=== PATIENT | female | born 1970 | race Caucasian/White ===

== ENCOUNTER → 2017-11-14 19:25 | Outpatient (CLI) | payer BC, SELFPAY ==
[2017-08-16 02:55] VITALS: BMI 30.7
[2017-08-16 14:50] VITALS: BP 110/64
[2017-11-18 17:08] LABS: HPV Reflexed? NOT INDICATED
== END ==
PROVIDERS: Family Provider Nurse Practitioner; PCP Nurse Practitioner; Visit Provider Obstetrics & Gynecology
DX: Z12.4 Encounter for screening for malignant neoplasm of cervix (principal)
CPT/HCPCS: 88175; G0145

== ENCOUNTER 2018-02-13 21:27 | Emergency (ER) | payer BC, SELFPAY ==
[2018-02-13 21:28] VITALS: BP 138/92; PULSE 84; RESP 15; TEMP 36.8; BMI 31.6
--- NOTE | 2018-02-13 22:19 | RAD_ITS ---
STUDY: X-RAY - LEFT FOOT CLINICAL: Female, 47 years old. Trauma TECHNIQUE: 3 view(s) of the foot. COMPARISON: None. FINDINGS: Normal talus,, and tarsal bones. Tiny calcaneal spur is noted Normal visualized subtalar, talonavicular, calcaneocuboid, tarsal and tarsometatarsal articulations. Normal metatarsi. Normal metatarsophalangeal joint of the great toe. Normal tibial and fibular sesamoid bones. Normal interphalangeal joint of the great toe. Normal phalanges of the great toe. Normal second through fifth metatarsophalangeal joints. Normal interphalangeal joints and phalanges of the lesser toes. The soft tissue structures are unremarkable. RAD/Foot min 3 Views IMPRESSION: No evidence for acute fracture or dislocation Electronically Signed: Taqueria Paul MD at 22:54 EDT , Service support ,
--- NOTE | 2018-02-13 22:19 | RAD_ITS ---
STUDY: X-RAY - LEFT ANKLE REASON FOR EXAM: Female, 47 years old. Swelling TECHNIQUE: 3 view(s) of the ankle. COMPARISON: None. FINDINGS: Normal visualized distal tibia and fibula. Normal medial and lateral malleoli. Normal tibiotalar articulation and ankle mortise. Normal visualized talus and calcaneus. The visualized subtalar, talonavicular, calcaneocuboid and tarsal articulations are normal. Bimalleolar soft tissue swelling is seen RAD/Ankle min 3 Views IMPRESSION: Bimalleolar sprain. No evidence for acute fracture. Electronically Signed: Taqueria Paul MD at 22:53 EDT , Service support ,
[2018-02-13] MEDS: HYDROcodone Bitartrate/Apap 5/325 Tablet PO (23:03)
--- NOTE | 2018-02-13 23:36 | ED.DCSUM_ITS ---
- ER Visit Summary Date of Service: 02/13/18 Chief Complaint: [Injury to left foot and ankle] History of Present Illness: The patient is a 47 F [presents to the emergency department after sustaining an injury 2 days ago. Patient states that she missed a step and fell twisting her foot and ankle. Patient has not been able to bear much weight. Patient denies any other injuries.] Physical Examination: [HEENT-PERRLA, EOMI. Cranial nerves II through XII grossly intact. TMs clear. Mucous membranes moist. No adenopathy. Cardiovascular-regular rate and rhythm without murmur or ectopy Lungs-clear to auscultation, chest wall stable without crepitus or subcu emphysema Abdomen-normoactive bowel sounds, soft, nontender, no rebound or rigidity, no peritoneal signs. Extremities-intact ?4, normal range of motion, normal pulses, atraumatic]. Left lower extremity-patient has diffuse soft tissue swelling about the left ankle and foot. There is diffuse ecchymosis and bruising medial and lateral ankle and foot. No pain at the proximal fibular head. Neurovascular intact distally. Test Results: [X-rays of the left foot and ankle obtained showed no fractures only soft tissue swelling.] Emergency Department Course and Treatment: [Patient given an air splint and crutches] Treatment Plan: [Patient advised to ice and elevate extremity. Patient will be given a prescription for Tolar for pain] Disposition: [Discharged to home in stable condition]. Patient advised to follow-up with her primary care physician within next 5-7 days. Impression: [Left foot and ankle sprain] This note was generated with [employer] dictation software. It may contain incorrect words, spelling, and punctuation that were not noted in review of the chart prior to signing ED Disposition - Plan for ED Patient: Chief Complaint: Lower Extremity Injury Referrals: Nuris Fowler [Primary Care Provider] -
--- NOTE | 2018-02-13 23:36 | ED.DEP ---
ED Disposition - Plan for ED Patient: Chief Complaint: Lower Extremity Injury Instructions: ED Sprain Foot, ED Sprain Ankle W X Ray Prescriptions: Hydrocodone/Acetaminophen [[place] 5-325 Tablet] 1 - 2 ea PO 4X/DAY PRN PRN 5 Days #20 tab PRN Reason: Pain Referrals: Nuris Fowler [Primary Care Provider] - 5-7 Days
[2018-02-13 23:46] VITALS: BP 129/79; PULSE 85; RESP 17; O2SAT 95
--- NOTE | 2018-02-13 23:47 | ED.RN ---
DISCHARGE INSTRUCTIONS GIVEN TO AND REVIEWED WITH PATIENT, PATIENT DENIES QUESTIONS OR CONCERNS AND VOICES UNDERSTANDING OF DISCHARGE INSTRUCTIONS. PT AMBULATE OUT OF ROOM WITHOUT DIFFICULTY.
== END 2018-02-13 23:48 | disposition home or self-care (01) ==
PROVIDERS: Emergency Provider Emergency Medicine; Family Provider Nurse Practitioner; PCP Nurse Practitioner
DX: S93.602A Unspecified sprain of left foot, initial encounter (principal); S93.402A Sprain of unspecified ligament of left ankle, initial encounter; W10.9XXA Fall (on) (from) unspecified stairs and steps, initial encounter; Y93.9 Activity, unspecified; Y92.9 Unspecified place or not applicable; Z90.89 Acquired absence of other organs
CPT/HCPCS: 73610; 73630; 99284

== ENCOUNTER 2018-03-13 15:30 | Outpatient (RCR) | payer BC, SELFPAY ==
--- NOTE | 2018-03-04 18:58 | HP.PTEVAL_ITS ---
Patient's Visit Information ALFONSO FISH is a 47 year old F referred to Physical Therapy by Anjelica Mahoney with a diagnosis of L inversion ankle sprain. Date of Evaluation: 02/25/18 Physical Therapist: Eran Esquivel - Visit Plan Frequency: 2x /Week Duration: 4 Weeks Plan: 4way ankle w/tband in PT and for HEP, add WB ex's as pt tolerates - Subjective Subjective: Pt. is here today for her initial evaluation with diagnosis of L inversion ankle sprain. Pt. reports ~2 weeks ago she was walking up her stairs and went to turn around to go back down and missed the last 3 steps, landing with her ankle turned in spraining it. She arrives today in a walking soft air cast. She reports initial edema with initial lmited ability to bear wt. Pt. has improved, but continues to use crutches for mobility. She reports increased lateral ankle pain with all WBing, and with having ankle in a dependent position. She has been icing and using compression to reduce symptoms. 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 Pt. had an xray not showing any acute fractures. Pt. is hopeful to reduce symptoms in order to get back to all work and recreational activities without limitations. - Pain left ankle Pain Intensity (Out of 10): 2 Pain Intensity Range: 2, 6 - Objective POSTURE: Pt. is able to stand, but has slight increased wt. shift to R side in stance. Pt. is able to stand without cructches, but walking has increased antalgic pattern, but is able to bear wt. PALPATION: Pt. has marked non pitting edema throughout L ankle/foot. Pt. has some lateral and posterior discoloration as well. Pt. has edema throughout lateral aspect of ankle/foot. Pt. has increased pain at ATFL and CFL regions at lateral malleolus. She also has pain along distal end of fibula. Increased pain to tapping of distal end of fibula. NEUROLOGICAL: Pt. has normal sensation to light and sharp touch of bilateral LEs. Pt. has 2+ patellar and achilles DTR bilateral, normal pedial pulses. ROM: R ankle- DF 18deg, PF 49deg, INV 18deg, EVR 20deg. L ankle- DF 8deg, PF 33deg, INV 7deg, EVR 8deg. Pt. had increased pain with end range of over pressures, empty end feel secondary to pain. MMT: R ankle 5/5 throughout. L ankle- DF 4/5 NW, PF 4/5 increase NW, INV 4/5 increase NW, EVR 4-/5 increase NW. Pt. has 5/5 bilateral quad/HS strength. GAIT: Pt. uses crutches and walking air cast. Pt. is able to bear wt. throughout L LE, but reports increased pain with doing so. Pt. has antalgic pattern with reduced use of crutches. Decreased step length noted, minimal heel off with RLE and limited push off. SPECIAL TESTING: - anterior tilt, - anterior drawer, - calcaneal tilt. Pt. had mild pain with all of the above, but no laxity noted. Pt. had negative kevin's sign. Pt. did have pain with tapping to distal fibural head. - Goals Goal 1:: Pt. to be I with HEP. Goal Time Frame: 4-6 Weeks Goal 2:: Pt. to have full L ankle ROM without increase in symptoms. Goal Time Frame: 4-6 Weeks Goal 3:: Pt. to have increased L ankle, foot strength by 1/2 grade of all effected musculature. Goal Time Frame: 4-6 Weeks Goal 4:: Pt. to ambulate without AD without increase in symptoms allowing for increased tolerance to all work related activities. Goal Time Frame: 4-6 Weeks Goal 5:: Pt. to tolerate SLS on LLE for 30sec without increase in symptoms and improved stability. Goal Time Frame: 4-6 Weeks - Rehabilitation Potential Physical Therapy Diagnosis: Pt. has signs and symptoms consistent with L inversion ankle sprain. Pt. has continued edema and decreased tolerance to wt. bearing on LLE. She continues to use crutches to assist with off loading. She did have signs of distal fibular involvement, if she does not progress with wt. bearing I might suggest a repeat xray as edema reduces to rule out missed fx. Pt. has no signs of ligament damage at this point, but difficult to be sure do to edema. Rehabilitation Potential: Good - Anticipated Interventions Patient/Client Instruction: Educate patient on: Condition, Plan of Care, Risk Factors, Benefits of Fitness Program For the Purpose of:: To foster healthy habits, To improve decision making, To facilitate caregiver knowledge, To improve self management, To prevent re-injury , To improve ability to perform tasks related to life management, To improve tolerance to ADL's Therapeutic Exercise to Include: Strength training, Power training, Body mechanics, Postural training, Flexibilty training, Gait and locomotor training, Passive ROM, Active ROM For the Purpose of:: To decrease pain, To decrease swelling/inflammation, To increase ROM, To improve nutrient delivery to tissue, To increase oxygenation perfusion, To improve muscle performance and motor function, To improve ability to perform ADL's, To improve gait and locomotor functions, To improve health of tissue, To decrease soft tissue restriction, To increase flexibility/ROM, To improve endurance, To improve balance Manual Therapy Techniques to Include: Mobilization, Passive ROM, Soft tissue mobilization For the Purpose of:: To decrease pain, To decrease swelling/inflammation, To increase ROM, To improve nutrient delivery to tissue Other electric stimulation: Yes Cryotherapy (ice pack, ice massage): Yes Vasopneumatic device: Yes For the Purpose of:: To decrease pain, To decrease swelling/inflammation, To increase ROM Thank you for the opportunity to evaluate your patient. For Medicare and Medicare HMO plans, please review the plan of care and approve it. It will need to be FAXED BACK to us at [phone] for Medicare purposes. Please let me know if there are questions or concerns regarding this plan of care. Physician Signature: Date:
--- NOTE | 2018-08-06 13:50 | HP.PTDCNRP_ITS ---
HP - Discharge Summary (1) - Patient Information ALFONSO FISH was seen in my office for initial evaluation on 02/25/18. The following Plan of Care was established for this patient: Initial Frequency: 2x /Week Initial Duration: 4 Weeks - Anticipated Interventions Patient/Client Instruction: Educate patient on: Condition, Plan of Care, Risk Factors, Benefits of Fitness Program For the Purpose of:: To foster healthy habits, To improve decision making, To facilitate caregiver knowledge, To improve self management, To prevent re- injury, To improve ability to perform tasks related to life management, To improve tolerance to ADL's Therapeutic Exercise to Include: Strength training, Power training, Body mechanics, Postural training, Flexibilty training, Gait and locomotor training, Passive ROM, Active ROM For the Purpose of:: To decrease pain, To decrease swelling/inflammation, To increase ROM, To improve nutrient delivery to tissue, To increase oxygenation perfusion, To improve muscle performance and motor function, To improve ability to perform ADL's, To improve gait and locomotor functions, To improve health of tissue, To decrease soft tissue restriction, To increase flexibility/ROM, To improve endurance, To improve balance Manual Therapy Techniques to Include: Mobilization, Passive ROM, Soft tissue mobilization For the Purpose of:: To decrease pain, To decrease swelling/inflammation, To increase ROM, To improve nutrient delivery to tissue Other electric stimulation: Yes Cryotherapy (ice pack, ice massage): Yes Vasopneumatic device: Yes For the Purpose of:: To decrease pain, To decrease swelling/inflammation, To increase ROM This patient was last seen in our office 03/13/18. Pertinent comments regarding their Physical therapy will appear below: Pt. was seen for her R lateral ankle sprain. Pt. was treated with ROM, strengthening and modalities. Pt. was progressing as expected. Pt did not return to subsequent visits and has not been seen in ~4 months. She will be DC from PT at this point in time. At this point I will be discontinuing this patient from physical therapy. I would be happy to see this patient again in the future if found appropriate by t he physician. Thank you! Eran Esquivel
== END 2018-03-13 19:00 | disposition home or self-care (01) ==
LOC: PT 15:30
PROVIDERS: Family Provider Nurse Practitioner; PCP Nurse Practitioner; Visit Provider Internal Medicine
DX: S93.401D Sprain of unspecified ligament of right ankle, subsequent encounter (principal)
CPT/HCPCS: 97110; 97161

== ENCOUNTER → 2021-03-16 13:30 | Outpatient (CLI) | payer BC, SELFPAY ==
[2021-03-20 13:25] LABS: HPV APTIMA, High Risk Negative (Negative)
== END ==
PROVIDERS: PCP Nurse Practitioner; Visit Provider Student in an Organized Health Care Education/Training Program
DX: Z12.4 Encounter for screening for malignant neoplasm of cervix (principal)
CPT/HCPCS: 87624; 88175; G0145

== ENCOUNTER → 2021-06-27 07:41 | Outpatient (CLI) | payer BC, SELFPAY ==
--- NOTE | 2021-06-27 07:46 | BI_ITS ---
MAMMOGRAPHY - BILATERAL SCREENING REASON FOR EXAM: Female, 51 years old. Routine annual screening examination. PERTINENT HISTORY: Non-contributory. TECHNIQUE: Digital bilateral breast [place]o (3D mammographic acquisition) in the CC and MLO projections. 2-D mediolateral oblique (MLO) and craniocaudad (CC) views of both breasts were obtained. CAD: Full Field Digital Mammography with Computer Added Detection was performed. COMPARISON: Comparison is made with prior study dated 12/10/2016 and 06/14/2014. FINDINGS: Breast Composition: The breasts are heterogeneously dense, which may obscure small masses. There is a 1.9 cm x 1.2 cm well-defined nodule in the upper lateral aspect of the right breast. Correlation with ultrasound is recommended. Stable benign appearing bilateral axillary adenopathy. No other significant abnormalities are identified. BI/SCRN MAMM (CAD)W/MODESTO BILAT IMPRESSION: 1.9 cm x 1.2 cm well-defined nodule in the upper lateral aspect of the right breast. Correlation with ultrasound is recommended. ASSESSMENT CATEGORY: BIRADS Category 0: Incomplete. Need additional imaging evaluation. A letter regarding these results will be sent to the patient by the facility within 30 days. Approximately 10% of breast cancers are not detected by mammography. A normal mammogram should not delay biopsy of a clinically suspicious abnormality. [id number] Electronically Signed: Krzysztof Knapp MD at 8:55 EDT , Service support ,
== END ==
PROVIDERS: PCP Nurse Practitioner; Referring Provider Nurse Practitioner; Visit Provider Nurse Practitioner
DX: Z12.31 Encounter for screening mammogram for malignant neoplasm of breast (principal)
CPT/HCPCS: 77063; 77067

== ENCOUNTER → 2021-07-11 07:53 | Outpatient (CLI) | payer BC, SELFPAY ==
--- NOTE | 2021-07-11 07:58 | US_ITS ---
STUDY: ULTRASOUND BREAST - RIGHT REASON FOR EXAM: Female, 51 years old. Abnormal screening mammogram. TECHNIQUE: Axial and longitudinal images of the RIGHT breast were performed with a high resolution ultrasound transducer. # OF IMAGES: 12 COMPARISON: Comparison is made with prior study dated 06/27/2021. FINDINGS: RIGHT Breast: The mammographic abnormality corresponds to a 2 cm x 2.2 cm x 0.6 cm cyst at the 11 o''clock position of the breast at 4 cm from nipple. A tiny septation is seen within it. US/Breast Limited Unilateral IMPRESSION: The mammographic abnormality corresponds to a 2 cm x 2.2 cm x 0.6 cm cyst at the 11 o''clock position of the breast at 4 cm from the nipple. ASSESSMENT CATEGORY: BIRADS Category 2: Benign. A letter regarding these results will be sent to the patient by the facility within 30 days. Electronically Signed: Krzysztof Knapp MD at 8:48 EDT , Service support ,
== END ==
PROVIDERS: PCP Nurse Practitioner; Referring Provider Nurse Practitioner; Visit Provider Nurse Practitioner
DX: R92.8 Other abnormal and inconclusive findings on diagnostic imaging of breast (principal)
CPT/HCPCS: 76642

== ENCOUNTER 2021-10-25 15:55 | Outpatient (CLI) | payer BC, SELFPAY ==
[2021-10-25 16:49] LABS: Hemoglobin 12.1 g/dL (12.0-15.0); Mean Corp Hgb Conc 32.7 g/dL (32-36); Mean Corpuscular Hgb 30.1 pg (27.0-32.0); Mean Platelet Vol. 9.8 fl (6.2-12.0); Platelet Count 404 K/mm3 (150-450); RBC Distribution Width CV 11.9 % (11.6-14.6); RBC Distribution Width SD 40.6 fl (35.1-43.9); Red Blood Count 4.02 M/mm3 (4.2-5.4); White Blood Count 6.2 K/mm3 (4.4-11.0)
[2021-10-25 17:08] LABS: Hemoglobin A1c 4.7 % (3.8-5.6)
[2021-10-25 17:22] LABS: Follicle Stimulating Hormone 24.3 mIU/mL; Luteinizing Hormone 11.8 mIU/mL; Thyroid Stim Hormone (TSH) 1.18 uIU/mL (0.358-3.74)
== END 2021-10-25 23:59 | disposition short-term general hospital (02) ==
LOC: WOBLAB 15:56
PROVIDERS: PCP Nurse Practitioner; Visit Provider Student in an Organized Health Care Education/Training Program
DX: N93.9 Abnormal uterine and vaginal bleeding, unspecified (principal)
CPT/HCPCS: 36415; 83001; 83002; 83036; 84443; 85027

== ENCOUNTER → 2022-08-13 | Outpatient (CLI) | payer BC, SELFPAY ==
--- NOTE | 2022-08-13 16:03 | BI_ITS ---
MAMMOGRAPHY - BILATERAL SCREENING REASON FOR EXAM: Female, 52 years old. Routine annual screening examination. PERTINENT HISTORY: Non-contributory. TECHNIQUE: Digital bilateral breast [place] (3D mammographic acquisition) in the CC and MLO projections. 2-D mediolateral oblique (MLO) and craniocaudad (CC) views of both breasts were obtained. CAD: Full Field Digital Mammography with Computer Added Detection was performed. COMPARISON: Comparison is made with prior study dated 06/27/2021 and 12/10/2016. FINDINGS: Breast Composition: The breasts are heterogeneously dense, which may obscure small masses. There is a 2.8 cm x 1.7 cm well-defined nodular density in the upper lateral aspect of the right breast. This may represent either a septated cyst or 2 adjacent cysts. This has increased in size as compared to prior study. Correlation with ultrasound is recommended. No other significant abnormalities are identified. BI/SCRN MAMM (CAD)W/MODESTO BILAT IMPRESSION: There has been enlargement of the previously seen nodular density in the slightly upper lateral aspect of the right breast as described. Correlation with ultrasound is recommended. ASSESSMENT CATEGORY: BIRADS Category 0: Incomplete. Need additional imaging evaluation. A letter regarding these results will be sent to the patient by the facility within 30 days. Approximately 10% of breast cancers are not detected by mammography. A normal mammogram should not delay biopsy of a clinically suspicious abnormality. [id number] Electronically Signed: Krzysztof Knapp MD at 8:29 EDT ,
== END | disposition home or self-care (01) ==
LOC: OPBI 16:01
PROVIDERS: PCP Nurse Practitioner Family; Visit Provider Nurse Practitioner Family
DX: Z12.31 Encounter for screening mammogram for malignant neoplasm of breast (principal)
CPT/HCPCS: 77063; 77067

== ENCOUNTER → 2022-08-15 | Outpatient (CLI) | payer BC, SELFPAY ==
--- NOTE | 2022-08-15 10:27 | US_ITS ---
STUDY: ULTRASOUND BREAST - RIGHT REASON FOR EXAM: Female, 52 years old. Abnormal screening mammogram. TECHNIQUE: Axial and longitudinal images of the RIGHT breast were performed with a high resolution ultrasound transducer. # OF IMAGES: 6 COMPARISON: Comparison is made with prior mammogram dated 08/13/2022. FINDINGS: RIGHT Breast: The mammographic abnormality corresponds to a 2.6 cm x 3.4 cm x 1.1 cm cyst at the 11 o''clock position of the breast and 4 cm from the nipple. US/Breast Limited Unilateral IMPRESSION: The mammographic abnormality corresponds to a 2.6 cm x 3.4 cm x 1.1 cm cyst at the 11 o''clock position of the breast and for sinusitis of the nipple. ASSESSMENT CATEGORY: BIRADS Category 2: Benign. A letter regarding these results will be sent to the patient by the facility within 30 days. Electronically Signed: Krzysztof Knapp MD at 10:56 EDT ,
== END | disposition home or self-care (01) ==
LOC: OPUS 10:24
PROVIDERS: PCP Nurse Practitioner Family; Visit Provider Nurse Practitioner Family
DX: R92.2 Inconclusive mammogram (principal)
CPT/HCPCS: 76642

== ENCOUNTER → 2022-11-11 | Outpatient (CLI) | payer BC, SELFPAY ==
--- NOTE | 2022-11-11 15:05 | CT_ITS ---
STUDY: CT ABDOMEN AND PELVIS WITH CONTRAST REASON FOR EXAM: Female, 52 years old. ABD PAIN/ RECTAL BLEEDING/NAUSEA RADIATION DOSAGE (If Supplied By Facility): CTDIvol = ( 20.46 ) mGy, DLP = ( 1131.39 ) mGycm TECHNIQUE: Transaxial images were obtained from the dome of the diaphragm to the symphysis pubis without oral contrast. Oral and amp;amp; IV Gastrografin and amp;amp; 100mL Isovue-370 was administered. Sagittal and coronal images were reconstructed. Individualized dose optimization techniques were used for this CT. COMPARISON: August 15, 2017 FINDINGS: Minor atelectasis within the dependent portion of the lungs.. The visualized portions of the heart are within normal limits. Normal liver. Normal gallbladder and extrahepatic biliary system. Normal spleen. Normal pancreas. Normal bilateral adrenal glands. No evidence for renal obstruction. There is a very tiny cortical cyst in left kidney. Normal visualized stomach.. No evidence for small bowel obstruction. There are a couple small bowel loops in the right lower abdomen demonstrating thickening of the ramos possibly representing nonspecific enteritis Normal colon. . Appendix not visualized consistent with appendectomy. Normal abdominal aorta. Normal inferior vena cava. Normal retroperitoneum. Normal urinary bladder. Normal abdominal wall. Lumbar spine demonstrates mild degenerative change CT/Abdomen/Pelvis WITH Contrast IMPRESSION: No evidence for small bowel obstruction. Findings which may be consistent with mild nonspecific enteritis. Postop change status post appendectomy Electronically Signed: Taqueria Paul MD at 17:51 EST ,
[2022-11-11 16:17] LABS: Absolute Lymphocyte Count 1.51 X10^3/uL (0.83-4.51); Absolute Neutrophil Count 3.2 X10^3/uL (2.0-7.7); Basophil# 0.04 X10^3/uL; Basophil% 0.7 % (0-1); Eosinophil# 0.22 X10^3/uL; Eosinophils% 4.1 % (0-5); Hematocrit 42.8 % (37-47); Hemoglobin 14.5 g/dL (12.0-15.0); Lymphocyte # 1.51 X10^3/ul (0.83-4.51); Mean Corp Hgb Conc 33.9 g/dL (32-36); Mean Corpuscular Hgb 30.8 pg (27.0-32.0); Mean Corpuscular Volume 90.9 fL (81-99); Mean Platelet Vol. 11.3 fl (6.2-12.0); Monocyte# 0.43 X10^3/uL; NRBC Flagged by Analyzer 0 % (0-5); Neutrophil # 3.18 X10^3/uL (2.7-7.7); Neutrophil % 58.8 % (47-70); POSITIVE COUNT YES; Platelet Count 271 K/mm3 (150-450); RBC Distribution Width CV 12.5 % (11.6-14.6); RBC Distribution Width SD 41.1 fl (35.1-43.9); Red Blood Count 4.71 M/mm3 (4.2-5.4); White Blood Count 5.4 K/mm3 (4.4-11.0)
[2022-11-11 16:18] LABS: AST(SGOT) 26 U/L (15-37); Alanine Aminotransfer ALT/SGPT 32 U/L (13-56); Alkaline Phosphatase 84 U/L (45-117); Amylase 93 U/L (25-115); Anion Gap 11 (5-15); BUN 14 mg/dL (7-18); BUN/Creat Ratio 14.6 RATIO (10-20); Calcium,Total 10.2 mg/dL (8.5-10.1); Chloride 99 mmol/L (98-107); Creatinine, Serum 0.96 mg/dL (0.55-1.02); EST Glomerular Filtration Rate 64 mL/min (>60); Est Glom Filt Rate - Afr Amer 78 mL/min (>60); Globulin 3.9 g/dL (2.2-4.2); Glucose 79 mg/dL (74-106); Lipase 306 U/L (73-393); Protein, Total 7.9 g/dL (6.4-8.2); Sodium Level 139 mmol/L (136-145)
[2022-11-11 16:21] LABS: Differential Indicated SCAN CRITERIA MET
[2022-11-11 16:23] LABS: International Normalized Ratio 0.9; Partial Thromboplast Time 35.3 Seconds (24.1-36.2); Prothrombin Time (Protime)PT. 12.3 SECONDS (11.7-14.9)
[2022-11-11 16:40] LABS: Differential Comment SCANNED
[2022-11-11 17:50] LABS: CREATININE FINGERSTICK < 0.9 mg/dL (0.55-1.02); EGFR FINGERSTICK > 60.0000 mL/min (>60)
== END | disposition home or self-care (01) ==
PROVIDERS: PCP Nurse Practitioner Family; Referring Provider Nurse Practitioner Family; Visit Provider Nurse Practitioner Family
DX: K62.5 Hemorrhage of anus and rectum (principal); R10.9 Unspecified abdominal pain; Z90.89 Acquired absence of other organs; N28.1 Cyst of kidney, acquired
CPT/HCPCS: 74177; 80053; 82150; 83690; 85025; 85610; 85730; Q9967

== ENCOUNTER → 2024-01-14 | Outpatient (CLI) | payer BC, SELFPAY ==
--- NOTE | 2024-01-14 12:23 | BI_ITS ---
MAMMOGRAPHY - BILATERAL SCREENING REASON FOR EXAM: Female, 53 years old. Routine annual screening examination. PERTINENT HISTORY: Non-contributory. TECHNIQUE: Digital bilateral breast [place] (3D mammographic acquisition) in the CC and MLO projections. 2-D mediolateral oblique (MLO) and craniocaudad (CC) views of both breasts were obtained. CAD: Full Field Digital Mammography with Computer Added Detection was performed. COMPARISON: Comparison is made with prior study August 13, 2022 and June 27, 2021. FINDINGS: Breast Composition: The breasts are heterogeneously dense, which may obscure small masses. There are no dominant masses or suspicious calcifications. Previously seen well-defined nodule in the upper outer aspect of the right breast has resolved. No other significant abnormalities are identified. BI/SCRN MAMM (CAD)W/MODESTO BILAT IMPRESSION: There has been resolution of the previously seen well-defined nodule in the upper-outer quadrant of the right breast. Yearly follow-up mammogram recommended. (A) ASSESSMENT CATEGORY: BIRADS Category 2: Benign. A letter regarding these results will be sent to the patient by the facility within 30 days. Approximately 10% of breast cancers are not detected by mammography. A normal mammogram should not delay biopsy of a clinically suspicious abnormality. [id number] Electronically Signed: Krzysztof Knapp MD at 13:03 EDT ,
== END | disposition home or self-care (01) ==
LOC: OPBI 12:23
PROVIDERS: PCP Nurse Practitioner Family; Referring Provider Nurse Practitioner Family; Visit Provider Nurse Practitioner Family
DX: Z12.31 Encounter for screening mammogram for malignant neoplasm of breast (principal)
CPT/HCPCS: 77063; 77067

== ENCOUNTER 2024-03-24 20:35 | Observation (INO) | payer BC, SELFPAY ==
[2024-03-24 20:37] VITALS: BP 132/91; PULSE 117; RESP 30; TEMP 36.6; O2SAT 93; BMI 31.8
[2024-03-24 20:46] VITALS: BP 129/88; PULSE 114; RESP 18; O2SAT 97
[2024-03-24 20:56] VITALS: O2SAT 97
--- NOTE | 2024-03-24 20:56 | EKG12_ITS ---
Test Reason : AM EKG Blood Pressure : / mmHG Vent. Rate : 081 BPM Atrial Rate : 081 BPM P-R Int : 164 ms QRS Dur : 082 ms QT Int : 438 ms P-R-T Axes : 046 055 037 degrees QTc Int : 508 ms Normal sinus rhythm Prolonged QT Abnormal ECG When compared with ECG of 24-MAR-2024 20:52, MANUAL COMPARISON REQUIRED, DATA IS UNCONFIRMED Confirmed by Med Matias ([id number]), field map editor BRITNI GARCIA ([id number]) on 03/25/2024 9:49:21 AM Referred By: [facility] Confirmed By:Med Matias
--- NOTE | 2024-03-24 21:00 | RAD_ITS ---
STUDY: X-RAY CHEST REASON FOR EXAM: Female, 53 years old. chest pain TECHNIQUE: AP portable COMPARISON: August 15, 2017 FINDINGS: The lungs are clear and expanded. There is no demonstrated pleural abnormality. Normal size heart. Normal mediastinum and maddie. Normal visualized pulmonary arteries. Normal visualized aortic arch and descending thoracic aorta. Normal visualized thoracic spine. Normal visualized ribs, clavicles, and shoulders. There is no demonstrated abnormality of the visualized soft tissue structures of the upper abdomen. RAD/Chest 1 View (Portable) IMPRESSION: Normal x-ray examination of the chest. Electronically Signed: Taqueria Paul MD at 21:37 EDT ,
[2024-03-24 21:05] LABS: Absolute Lymphocyte Count 2.34 X10^3/uL (0.83-4.51); Absolute Neutrophil Count 4.2 X10^3/uL (2.0-7.7); Basophil# 0.03 X10^3/uL; Basophil% 0.4 % (0-1); Eosinophil# 0.19 X10^3/uL; Eosinophils% 2.5 % (0-5); Hemoglobin 14.4 g/dL (12.0-15.0); Lymphocyte # 2.34 X10^3/ul (0.83-4.51); Lymphocyte % 31.2 % (19-41); Mean Corp Hgb Conc 35.1 g/dL (32-36); Mean Corpuscular Volume 88.4 fL (81-99); Monocyte# 0.69 X10^3/uL; Monocyte% 9.2 % (0-10); NRBC Flagged by Analyzer 0 % (0-5); Neutrophil # 4.24 X10^3/uL (2.7-7.7); Neutrophil % 56.4 % (47-70); Platelet Count 324 K/mm3 (150-450); RBC Distribution Width CV 13.2 % (11.6-14.6); RBC Distribution Width SD 42.4 fl (35.1-43.9); Red Blood Count 4.64 M/mm3 (4.2-5.4); White Blood Count 7.5 K/mm3 (4.4-11.0)
[2024-03-24 21:15] VITALS: BP 119/84; PULSE 108; RESP 16; O2SAT 98
[2024-03-24 21:29] LABS: Anion Gap 17 (5-15); BUN 18 mg/dL (7-18); Calcium,Total 9.7 mg/dL (8.5-10.1); Chloride 99 mmol/L (98-107); Creatinine, Serum 1.29 mg/dL (0.55-1.02); EST Glomerular Filtration Rate 46 mL/min (>60); Est Glom Filt Rate - Afr Amer 55 mL/min (>60); Estimated Creatinine Clearance 53.64 ml/min; Glucose 146 mg/dL (74-106); Potassium 2.8 mmol/L (3.5-5.1); Sodium Level 135 mmol/L (136-145); Troponin-I HS (w/2H Reflex) 8 pg/mL (3.0-54.0)
[2024-03-24 21:54] LABS: D-Dimer Quantitative (DVT/PE) 0.33 FEU/ug/m (0.27-0.49)
[2024-03-24 22:00] VITALS: BP 160/101; PULSE 95; RESP 16; O2SAT 98
[2024-03-24] MEDS: 0.9% Normal Saline (1000mL) 1,000 ML 1000 ML IV (22:22)
--- NOTE | 2024-03-24 22:23 | ED.VIS.CHEST ---
HPI History of Present Illness Chief Complaint: Palpitations Informant: patient Onset/Context/Timing Onset: Hours (3) Activity at onset: sudden Timing: Continuous Quality: Positive for - (Hollow) Location: Substernal, Right Parasternal, Left Parasternal, Right Chest and Left Chest Worsened By: Nothing Relieved By: - (Valsalva maneuver) Associated Symptoms: Positive for Dyspnea, Lightheadedness and Palpitations; Negative for Nausea, Vomiting, Diaphoresis, Cough, Fever or Acid Reflux Narrative Narrative: Patient presents with chest pain that began approximately 3 hours prior to arrival. Patient states it began rather suddenly. Patient states it has been constant. EMS noted the patient was tachycardic with a heart rate in the 180s. EMS had the patient perform a Valsalva maneuver which improved her heart rate. Patient admits to some shortness of breath and lightheadedness with her pain. Patient states she feels hollow in her chest and abdomen. Patient denies any nausea or vomiting. Patient denies any diaphoresis. Patient denies any cough or fever. Patient admits to some tingling into her feet and her fingers. Patient states that while she was in her car on the way to the emergency department her finger started cramping. That is when she had her call for EMS. CVD Risk Factors: Positive for Hypertension; Negative for Diabetes, Hypercholesterolemia, Family History 1' </=55 or Smoking PE Risk Factors: Negative for Recent Travel/Surgery, Recent Immobilization, Prior DVT or PE, Cancer or OCP + Smoking + >/=35 PFSH PFSH Medical History HTN (hypertension) Home Medications ?Medication ?Instructions ?Recorded ?Last Taken ?Type fluoxetine 40 mg capsule 40 mg PO DAILY 08/15/17 08/14/17 History multivitamin 1 tab PO DAILY 07/16/22 Unknown History triamterene 75 0.5 tab PO DAILY 07/16/22 Unknown History mg-hydrochlorothiazide 50 mg tablet zinc oxide 15 mg-herbal complex 1 cap PO DAILY 07/16/22 Unknown History no.303 capsule amlodipine 5 mg tablet 5 mg PO DAILY 03/24/24 Unknown History fluoxetine 60 mg tablet 60 mg PO DAILY 03/24/24 Unknown History Allergy/AdvReac Type Severity Reaction Status Date / Time No Known Allergies Allergy Verified 03/24/24 20:47 Surgical History History of appendectomy Social History household members: family housing: house Smoking Status: Former smoker ROS ROS ED Constitutional Constitutional ED: Denies chills or fever(s) Eyes Eyes: Denies blurry vision or change in vision ENT ENT ED: Reports rhinorrhea and sore throat Cardiovascular Cardiovascular: Reports as per HPI, chest pain and palpitations Respiratory/Chest Respiratory/Chest: Reports dyspnea; Denies cough Gastrointestinal Gastrointestinal: Denies nausea or vomiting Genitourinary Genitourinary ED: Denies dysuria or hematuria Musculoskeletal Musculoskeletal: Denies back pain or neck pain Integumentary Denies abscess or rash Neurologic Neurologic: Denies headache(s) or weakness Allergic/Immunologic Allergic/Immunologic ED: Denies mouth swelling or urticaria EXAM Physical Exam Const Vital Signs: 03/24/24 20:37 03/24/24 20:46 03/24/24 20:56 Temperature 97.9 F Temperature Source Oral Pulse Rate 117 H 114 H Respiratory Rate 30 H 18 Blood Pressure 132/91 H 129/88 H Blood Pressure Mean 104 101 Pulse Ox 93 97 97 Oxygen Delivery Method Room Air Room Air Room Air 03/24/24 21:15 03/24/24 22:00 03/24/24 23:00 Temperature Temperature Source Pulse Rate 108 H 95 90 Respiratory Rate 16 16 16 Blood Pressure 119/84 H 160/101 H 133/89 H Blood Pressure Mean 95 120 103 Pulse Ox 98 98 97 Oxygen Delivery Method Room Air 03/25/24 00:00 Temperature Temperature Source Pulse Rate 81 Respiratory Rate 15 Blood Pressure 141/90 H Blood Pressure Mean 107 Pulse Ox 98 Oxygen Delivery Method Positive well nourished and well developed General Appearance ED: well developed and NAD HEENT Reports moist mucous membranes Neck supple and no JVD Resp normal respiratory effort and clear to auscultation bilaterally Cardio regular rhythm Rate: tachycardic GI soft to palpation, non-tender and non-distended Extremity Extremity Narrative: On initial examination, patient was hyperventilating and started to have carpopedal spasm. Neuro oriented x3, CN's II-XII intact bilaterally and no sensory deficits noted Sensorium / Orientation: awake and alert Motor Exam: strength 5/5 throughout Psych Mood & Affect: anxious Heart Score History: Slightly/Non-Suspicious ECG: Nonspecific Repolarization Age: >45 - <65 years Risk Factors: 1 or 2 Risk Factors Troponin: >1 - <3 Normal Limit Score: 4 MDM MDM MDM Narrative Medical decision making narrative: Differential diagnosis includes cardiac dysrhythmia, cardiac ischemia, electrolyte abnormality, anxiety, pneumonia, pneumothorax, and pulmonary embolism. EKG will be obtained to assess for cardiac dysrhythmia and cardiac ischemia. CBC will be obtained to assess for leukocytosis and anemia. Basic metabolic profile will be obtained to assess for electrolyte abnormality and renal function. D-dimer will be obtained to assess for pulmonary embolism. High-sensitivity troponin will be obtained to assess for cardiac ischemia. 2-hour repeat high-sensitivity troponin will be obtained to assess for ongoing cardiac ischemia. Lab Data Attestation: I reviewed the patient's lab results. Lab results narrative: CBC was reviewed and was within normal limits. Basic metabolic profile was reviewed. CO2 was slightly low at 19. Anion gap was slightly elevated at 17. Creatinine was slightly elevated at 1.29. Glucose was slightly elevated at 146. Potassium was low at 2.8. Initial high-sensitivity troponin was reviewed and was normal at 8. D-dimer was reviewed and was normal at 0.33. 2-hour repeat high-sensitivity troponin was reviewed and was elevated at 55. Arterial blood gas was reviewed. pH was 7.43, pCO2 is 39.8, pO2 is 112.9, bicarb was 26.5, and oxygen saturation of 98.6% on 2 L nasal cannula. Labs: Laboratory Results - last 24 hr 03/24/24 03/24/24 20:50 23:08 WBC 7.5 RBC 4.64 Hgb 14.4 Hct 41.0 MCV 88.4 MCH 31.0 MCHC 35.1 RDW Std Deviation 42.4 RDW Coeff of Christiane 13.2 Plt Count 324 MPV 10.0 Immature Gran % (Auto) 0.300 Neut % (Auto) 56.4 Lymph % (Auto) 31.2 [place] % (Auto) 9.2 Eos % (Auto) 2.5 Baso % (Auto) 0.4 Absolute Neuts (auto) 4.2 Absolute Lymphs (auto) 2.34 Nucleated RBC % 0 D-Dimer Quant (PE/DVT) 0.33 Sodium 135 L Potassium 2.8 L Chloride 99 Carbon Dioxide 19.0 L Anion Gap 17 H BUN 18 Creatinine 1.29 H Estim Creat Clear Calc 53.64 Est GFR (MDRD) Af Amer 55 L Est GFR (MDRD) Non-Af 46 L BUN/Creatinine Ratio 14.0 Glucose 146 H Calcium 9.7 Troponin I High Sens 8 55 H ABG Data ABG results: ABG 03/25/24 00:03 Specimen Type ART Sample Site R Radial pH 7.43 Bicarbonate Actual 26.5 H Total CO2 28 Base Excess 2 O2 Saturation 99 O2 % 2.0 ABG pCO2 39.8 ABG pO2 113 H Sumit Test Positive O2 Delivery Device Cannula Vent Mode Not entered Radiography Chest X-Ray - ED: 1 View, Read by ED Physician, Read by Radiologist and No Acute Disease Diagnostic Testing: Clinical Impression(s) from Imaging Studies Chest X-Ray 03/24/24 21:00 IMPRESSION: Normal x-ray examination of the chest. Electronically Signed: Taqueria Paul MD at 21:37 EDT Reading Location ID and State: [facility] / [place] Tel , Service support , Portable 1 view chest x-ray was obtained. On my independent interpretation, lung dudley are clear. There is normal cardiac silhouette. Bony thorax is normal. There is no acute process noted. Radiologist also interpreted the x-ray and agrees. EKG Initial EKG: Interpretation: Sinus Tachycardia (112) and Non-Specific ST Changes Comments: EKG was obtained. On my independent interpretation, shows sinus tachycardia with a rate of 112. MN interval was normal at 154 ms. QRS and was normal at 82 ms. QTc interval was slightly prolonged at 510 ms. [place] was normal. There are nonspecific ST-T wave changes noted. Prior EKG tracings: not available for review Prior: No Prior Management Discussion w/another healthcare provider: Hospitalist Additional Tests and Interventions Additional Tests or Interventions: Because of her low CO2 and elevated anion gap, an arterial blood gas and a lactic acid level was ordered. Treatment and Re-Evaluation :: Patient was given IV fluids. Patient was complaining of vertigo symptoms and a headache. Patient was given a dose of Valium for her vertigo symptoms. Patient was given Reglan and Benadryl for her headache. Patient felt better after this. Patient was given aspirin. Because of her hypokalemia, patient was given a dose of potassium here. Because of the increase in her troponin results, I recommended admission to the hospital. I will discuss case with the hospitalist. He will admit the patient to his service. Patient understood and was agreeable with the plan. All questions were answered. Discharge Plan Dx/Rx/DC Orders Clinical Impression: Chest pain, Tachycardia, HTN (hypertension), Hypokalemia Disposition Disposition: Acute Care Hospital [facility]
[2024-03-24] MEDS: diazePAM 5 MG Tablet 2.5 MG PO (22:36)
[2024-03-24] MEDS: DiphenhydrAMINE 50 MG/ML Syringe 25 MG IV (22:36)
[2024-03-24] MEDS: Metoclopramide 10 MG/2 ML Vial IV (22:36)
[2024-03-24 23:00] VITALS: BP 133/89; PULSE 90; RESP 16; O2SAT 97
[2024-03-24 23:01] LABS: Reflex Troponin-HS? (from REC) Y
[2024-03-24 23:33] LABS: Troponin-I HS 55 pg/mL (3.0-54.0)
[2024-03-24] MEDS: Aspirin 81 MG TAB.CHEW 324 MG PO (23:49)
[2024-03-24] MEDS: Potassium Chloride Oral Tablet 20 MEQ 40 MEQ PO (23:50)
[2024-03-25] VITALS (9 sets, daily range): BP systolic 111–148; BP diastolic 72–90; PULSE 72–90; RESP 13–17; TEMP 36.2–37; O2SAT 95–100; BMI 31.6
--- NOTE | 2024-03-25 00:13 | PCM.HP.STD ---
HPI - General General Date of Admission: 03/25/24 Date of Service: 03/25/24 Chief Complaint: Chest pain with palpitations HPI Narrative ALFONSO FISH, is a 53 F who presented to [facility] ED on 03/25/2024 with chest pain and palpitations. Patient seen at bedside in the ED, and sister present. Patient was sitting up comfortably in bed and conversing normally. She did appear to be mildly anxious but was otherwise in no acute distress. Patient states that earlier today she fairly abruptly started having centralized chest pain and discomfort along with tingling into her fingers and feet. She also felt like her heart was racing at that time. She never had this sensation before. She has a history of hypertension but has been on the same medications for last few years without any recent changes. She denies any recent nausea/vomiting or diarrhea. She reports having normal food and drink intake over the past several days. She usually drinks 1 glass of wine per day but rarely more than this. Patient did have an energy drink earlier today because she was feeling fatigued and this was the first energy drink she had had in a while. She started driving to the ED but felt like the pain and palpitations were getting worse so her called EMS and they met her enroute. Per ED staff, she was found to have heart rate in the 180s that appeared consistent with SVT. They had her perform a Valsalva maneuver and she converted to heart rate in the 110s that appeared to be sinus tachycardia. Patient states she did have an episode of vomiting after converting but then started to feel better. States that since arriving to the ED she has continued to feel improved. Currently denies any other concerns. Vitals in ED notable for mild sinus tachycardia in the 90s and 100s, otherwise unremarkable. Labs notable for sodium 135, potassium 2.8, bicarb 19, creatinine 1.29 (baseline 0.8-1.0), phosphorus 2.4, magnesium 2.1. Troponin trend 8 > 55 > 112. EKG showed normal sinus rhythm, no ST changes. Chest x-ray unremarkable. Given patient's suspected episode of SVT with chest pain and uptrending troponins, will be admitted for further management. FORMERLY [facility], [facility]–1983 Medical History HTN (hypertension) Home Medications ?Medication ?Instructions ?Recorded ?Last Taken ?Type fluoxetine 40 mg capsule 40 mg PO DAILY 08/15/17 08/14/17 History multivitamin 1 tab PO DAILY 07/16/22 Unknown History triamterene 75 0.5 tab PO DAILY 07/16/22 Unknown History mg-hydrochlorothiazide 50 mg tablet zinc oxide 15 mg-herbal complex 1 cap PO DAILY 07/16/22 Unknown History no.303 capsule amlodipine 5 mg tablet 5 mg PO DAILY 03/24/24 Unknown History fluoxetine 60 mg tablet 60 mg PO DAILY 03/24/24 Unknown History Allergy/AdvReac Type Severity Reaction Status Date / Time No Known Allergies Allergy Verified 03/24/24 20:47 Surgical History History of appendectomy Social History household members: family housing: house Smoking Status: Former smoker ROS Constitutional Constitutional: Denies chills, fatigue, fever(s) or weakness Eyes Eyes: Denies change in vision Cardiovascular Cardiovascular: Reports chest pain, palpitations and rapid heart rate; Denies dyspnea on exertion, edema, lightheadedness or orthopnea Respiratory/Chest Respiratory/Chest: Denies cough or shortness of breath at rest Gastrointestinal Gastrointestinal: Reports nausea; Denies abdominal pain, constipation, diarrhea or vomiting Musculoskeletal Musculoskeletal: Denies arthralgias or myalgias Neurologic Neurologic: Denies dizziness, focal weakness or headache(s) Vital Signs Vital Signs Vital Signs: 03/24/24 20:37 03/24/24 20:46 03/24/24 20:56 Temperature 97.9 F Temperature Source Oral Pulse Rate 117 H 114 H Respiratory Rate 30 H 18 Blood Pressure 132/91 H 129/88 H Blood Pressure Mean 104 101 Pulse Ox 93 97 97 Oxygen Delivery Method Room Air Room Air Room Air 03/24/24 21:15 03/24/24 22:00 03/24/24 23:00 Temperature Temperature Source Pulse Rate 108 H 95 90 Respiratory Rate 16 16 16 Blood Pressure 119/84 H 160/101 H 133/89 H Blood Pressure Mean 95 120 103 Pulse Ox 98 98 97 Oxygen Delivery Method Room Air 03/25/24 00:00 Temperature Temperature Source Pulse Rate 81 Respiratory Rate 15 Blood Pressure 141/90 H Blood Pressure Mean 107 Pulse Ox 98 Oxygen Delivery Method Weight Weight: 86.9 kg Body Mass Index (BMI) 31.8 Physical Exam Const alert, oriented x3 and no apparent distress Constitutional Narrative: Pleasant middle-age female, obese, mildly anxious appearing, otherwise sitting up comfortably in bed, conversing normally, no acute distress. General Appearance: cooperative and comfortable HEENT normocephalic, head/scalp atraumatic, hearing grossly normal bilaterally and nasal mucous membranes and turbinates normal Eyes PERRL, EOMs intact bilaterally and conjunctivae normal Neck full ROM Chest inspection of chest normal Resp normal respiratory effort, normal air movement, no use of accessory muscles and clear to auscultation bilaterally Cardio no murmurs and peripheral pulses 2+ throughout Cardio Narrative: Tachycardic, regular rhythm. GI normal to inspection, nondistended, normoactive bowel sounds, soft to palpation, non-tender and non-distended Back/Spine normal ROM Extremity normal to inspection, full ROM and no pedal edema Skin no rashes or lesions noted Neuro moves all extremities and no focal motor deficits Speech: speech normal Psych mental status grossly normal Mood & Affect: anxious Results Lab / Micro Data 03/25/24 03:13 03/25/24 03:13 Labs: Laboratory Results - last 24 hr 03/24/24 20:50: WBC 7.5, RBC 4.64, Hgb 14.4, Hct 41.0, MCV 88.4, MCH 31.0, MCHC 35.1, RDW Std Deviation 42.4, RDW Coeff of Christiane 13.2, Plt Count 324, MPV 10.0, Immature Gran % (Auto) 0.300, Neut % (Auto) 56.4, Lymph % (Auto) 31.2, [place] % (Auto) 9.2, Eos % (Auto) 2.5, Baso % (Auto) 0.4, Absolute Neuts (auto) 4.2, Absolute Lymphs (auto) 2.34, Nucleated RBC % 0, D-Dimer Quant (PE/DVT) 0.33, Sodium 135 L, Potassium 2.8 L, Chloride 99, Carbon Dioxide 19.0 L, Anion Gap 17 H, BUN 18, Creatinine 1.29 H, Estim Creat Clear Calc 53.64, Est GFR (MDRD) Af Amer 55 L, Est GFR (MDRD) Non-Af 46 L, BUN/Creatinine Ratio 14.0, Glucose 146 H, Calcium 9.7, Troponin I High Sens 8 03/24/24 23:08: Troponin I High Sens 55 H Imaging Radiology Impression Chest X-Ray 03/24/24 21:00 IMPRESSION: Normal x-ray examination of the chest. Electronically Signed: Taqueria Paul MD at 21:37 EDT Reading Location ID and State: [facility] / [place] Tel , Service support , Assessment & Plan Assessment/Plan (1) Hypokalemia: (2) Chest pain: (3) Elevated troponin: PLAN: Plan Patient is a 53-year-old female who presented [facility] ED on 03/25/2024 with chest pain and palpitations. 1. Chest pain with palpitations, episode of supraventricular tachycardia, elevated troponins ? Admit under observation status to PCU. Echo ordered. Continue cardiac monitoring. Has had steadily uptrending troponins but seems that this could be more consistent with mild ischemia due to her episode of SVT as well as mild dehydration. Will hold on heparin drip for now and continue trending troponins. Suspect SVT episode was primarily due to hypokalemia and caffeine intake, and per patient her chest pain was significantly worse during SVT episodes and has completely resolved. Will start Coreg 12.5 mg twice daily given her history of hypertension and with this episode of SVT. Monitor closely. Can consider cardiology consult as needed. 2. Mild creatinine elevation, improved ? Creatinine 1.29 on admit, baseline 0.8-1.0. Presumed prerenal due to mild dehydration. Improved to baseline with IV fluids. 3. Hypokalemia ? Unclear etiology. Denies recent episodes of nausea/vomiting or diarrhea. Denies any diuretic use. Magnesium and phosphorus normal. Potassium 2.8 on admit. Will check urine electrolytes. Replete as needed. Chronic medical conditions: ? Obesity: BMI 31 on admit. Encouraged lifestyle modifications. Complicates hospital course, care and prognosis. ? Hypertension: Home regimen of amlodipine 5 mg daily and triamterene?hydrochlorothiazide 37.5-25 mg daily. Started to Coreg 12.5 mg twice daily on admit as noted above. Will continue home amlodipine but hold home triamterene?hydrochlorothiazide for now. ? Anxiety/depression: Stable. Continue home fluoxetine. DVT prophylaxis: Lovenox CODE STATUS: Full code, verified Expected disposition: Home, 1 to 2 days Total clinical time spent by myself addressing the patient's medical issues, reviewing all the data, and collaborating with patient's care team: 55 minutes. Charges/Coding Visit Charges Inpatient E&M: 62555 Init Hosp L2
[2024-03-25 00:14] LABS: Allen Test Positive; Base Excess 2 mmol/L (-2 to +2); Bicarbonate 26.5 mmol/L (22-26); Blood Gas Specimen Type ART; Mode Not entered; O2 Delivery Device Cannula; PO2 113 mmHG (75-100); SITE R Radial; SO2 99 % (95-99); Total Carbon Dioxide 28 mmol/L; pCO2 39.8 mmHg (35-45); pH 7.43 (7.35-7.45)
[2024-03-25 01:18] LABS: Magnesium 2.1 mg/dL (1.6-2.6); Phosphorus 2.4 mg/dL (2.5-4.9)
--- NOTE | 2024-03-25 01:33 | ECHOD_ITS ---
Reason For Study: CHEST PAIN Procedure This was a 2D Doppler, Color Flow transthoracic echocardiogram. Exam performed portable in patient room. Left Ventricle Normal LV size. Left ventricular systolic function is normal. The left ventricular ejection fraction is 65 %. No regional wall motion abnormalities noted. Right Ventricle Normal RV size. Normal systolic function. Atria Normal left atrium. Normal right atrium. Mitral Valve Normal mitral valve. Tricuspid Valve Normal tricuspid valve. Aortic Valve Normal aortic valve. Pulmonic Valve Normal pulmonic valve. Great Vessels Normal aortic root. The pulmonary artery is normal size. Normal inferior vena cava. Pericardium/Pleural No pericardial effusion. MMode/2D Measurements & Calculations LVIDd: 4.3 cm IVSd: 0.99 cm Ao root diam: 3.0 cm LVIDs: 2.7 cm LVPWd: 0.98 cm RVDd: 2.9 cm FS: 37.5 % LAV(MOD-bp): 36.2 ml LVAd ap4: 26.0 cm2 SV(MOD-sp4): 51.7 ml LAV(MOD-bp) Indexed: 19.0 ml/m2 LVLd ap4: 7.3 cm LAV(MOD-sp2): 33.8 ml EDV(MOD-sp4): 78.7 ml LAV(MOD-sp4): 38.4 ml EDV(sp4-el): 78.8 ml LVAs ap4: 13.6 cm2 LVLs ap4: 6.4 cm ESV(MOD-sp4): 27.0 ml ESV(sp4-el): 24.8 ml EF(MOD-sp4): 65.7 % EF(sp4-el): 68.6 % SV(sp4-el): 54.0 ml LA A4 area: 14.5 cm2 LA dimension(2D): 3.4 cm Time Measurements MV dec time: 0.17 sec Doppler Measurements & Calculations MV E max delvin: 69.1 cm/sec Lat Peak E' Delvin: 6.9 cm/sec Med Peak E' Delvin: 8.6 cm/sec MV A max delvin: 62.6 cm/sec E/E' lat: 10.0 E/E' med: 8.0 MV E/A: 1.1 MV V2 max: 86.5 cm/sec MV P1/2t max delvin: 85.7 cm/sec Ao V2 max: 126.9 cm/sec MV max P.0 mmHg MV P1/2t: 63.6 msec Ao max P.4 mmHg MV V2 mean: 50.3 cm/sec Ao V2 mean: 96.0 cm/sec MV mean P.2 mmHg MV dec slope: 394.7 cm/sec2 Ao mean P.0 mmHg MV V2 VTI: 22.1 cm MVA(P1/2t): 3.5 cm2 Ao V2 VTI: 27.5 cm AV (velocity ratio): 0.65 LV V1 max: 83.6 cm/sec PA V2 max: 88.1 cm/sec LV V1 max P.8 mmHg PA V2 mean: 63.3 cm/sec LV V1 mean P.8 mmHg LV V1 mean: 65.4 cm/sec LV V1 VTI: 17.8 cm ECHO/Echo Complete Interpretation Summary Normal LV size. Left ventricular systolic function is normal. The left ventricular ejection fraction is 65 %. Structurally normal valves. Ordering Physician: Marcus Hurtado Referring Physician: Adrianna Basilio Performed By: Arely Carey, NASRIN, RVT
--- NOTE | 2024-03-25 01:44 | EKG12_ITS ---
Test Reason : CP Blood Pressure : / mmHG Vent. Rate : 112 BPM Atrial Rate : 112 BPM P-R Int : 154 ms QRS Dur : 082 ms QT Int : 374 ms P-R-T Axes : 060 085 041 degrees QTc Int : 510 ms Sinus tachycardia Possible Left atrial enlargement Nonspecific ST abnormality Abnormal ECG Confirmed by MIKI PIMENTEL, MITA ([id number]), market editor JUANITA RICARDO ([id number]) on 03/29/2024 11:39:34 AM Referred By: BB Confirmed By:MITA LIVINGSTON MD
[2024-03-25 03:28] LABS: Hematocrit 39.2 % (37-47); Hemoglobin 13.2 g/dL (12.0-15.0); Mean Corp Hgb Conc 33.7 g/dL (32-36); Mean Corpuscular Hgb 30.3 pg (27.0-32.0); Mean Corpuscular Volume 89.9 fL (81-99); Mean Platelet Vol. 9.4 fl (6.2-12.0); Platelet Count 283 K/mm3 (150-450); RBC Distribution Width CV 13.2 % (11.6-14.6); RBC Distribution Width SD 43.5 fl (35.1-43.9); Red Blood Count 4.36 M/mm3 (4.2-5.4); White Blood Count 6.4 K/mm3 (4.4-11.0)
[2024-03-25 04:15] LABS: Anion Gap 8 (5-15); BUN 16 mg/dL (7-18); BUN/Creat Ratio 17.9 RATIO (10-20); Calcium,Total 9.3 mg/dL (8.5-10.1); Chloride 105 mmol/L (98-107); Creatinine, Serum 0.89 mg/dL (0.55-1.02); EST Glomerular Filtration Rate 70 mL/min (>60); Est Glom Filt Rate - Afr Amer 84 mL/min (>60); Estimated Creatinine Clearance 74.71 ml/min; Glucose 107 mg/dL (74-106); Potassium 2.8 mmol/L (3.5-5.1); Sodium Level 139 mmol/L (136-145); Thyroid Stim Hormone (TSH) 3.24 uIU/mL (0.358-3.74); Troponin-I HS 112 pg/mL (3.0-54.0)
[2024-03-25] MEDS: Potassium Chloride Oral Tablet 20 MEQ 60 MEQ PO (06:07)
[2024-03-25 06:42] LABS: Bacteria 0 SEEN /hpf (None Seen); Mucous, Urine 0 SEEN /hpf (<or=2+); Red Blood Cells-Urine 0 SEEN /hpf (0-5); Squamous Epithelial Cells - UA 0 SEEN /hpf (5-10); White Blood Cells 0 SEEN /hpf (0-5)
[2024-03-25 06:44] LABS: Color, Urine Yellow (Yellow); Glucose, Dipstick Normal (Normal); Ketone-Dipstick Negative (Negative); Leukocyte Esterase-Dipstick Negative /ul (Negative); Nitrite-Dipstick Negative (Negative); Occult Blood-Urine Negative /ul (Negative); Protein-Dipstick Negative (Negative); Specific Gravity, Urine 1.005 (1.002-1.030); Urine Bilirubin Dipstick Negative (Negative); Urine Clarity Clear (Clear); Urine Urobilinogen Normal (Normal)
[2024-03-25 06:46] LABS: Troponin-I HS 119 pg/mL (3.0-54.0)
[2024-03-25 06:48] LABS: Urine Chloride 53 mmol/L (Not Establ.); Urine Sodium 81 mmol/L (Not Establ.)
[2024-03-25] MEDS: amLODIPine 5 MG Tablet PO (08:21)
[2024-03-25] MEDS: Fluoxetine HCl 40 MG CAPSULE PO (11:36)
[2024-03-25] MEDS: Carvedilol 12.5 MG Tablet PO ×2 (11:36→21:53)
[2024-03-25] MEDS: Multivitamins,Therapeutic Tablet 1 TABLET PO (11:36)
[2024-03-25 14:39] LABS: Anion Gap 7 (5-15); BUN 15 mg/dL (7-18); BUN/Creat Ratio 16.7 RATIO (10-20); Calcium,Total 9.2 mg/dL (8.5-10.1); Chloride 107 mmol/L (98-107); EST Glomerular Filtration Rate 69 mL/min (>60); Est Glom Filt Rate - Afr Amer 84 mL/min (>60); Estimated Creatinine Clearance 73.88 ml/min; Glucose 139 mg/dL (74-106); Potassium 3.1 mmol/L (3.5-5.1); Sodium Level 140 mmol/L (136-145)
--- NOTE | 2024-03-25 14:42 | PCM.PROGNOTE ---
Subjective Subjective Patient seen and examined. She had no active complaints at time of my review. However it was subsequently informed by nurse the patient Having Pressure-Like Symptoms That She Attributed to GERD and Says She Had Been Diagnosed with It a Few Weeks Ago. She Denies Any Chest Pain, Dizziness, Lightheadedness, Nausea Vomiting or Any Other Symptoms. Review of Systems Otherwise Negative. Objective Data Objective Data Vital Signs: Vital Signs Temp Pulse Resp BP Pulse Ox O2 Del Method 98.2 F 72 16 111/77 96 Room Air 03/25/24 14:35 03/25/24 14:35 03/25/24 14:35 03/25/24 14:35 03/25/24 14:35 03/25/24 14:35 Oxygen Delivery Method Room Air Weight: 184 lb 4.903 oz Body Mass Index (BMI) 31.6 Intake & Output: Intake and Output for Last 24 Hours 03/23/24 03/24/24 03/25/24 23:59 23:59 23:59 Intake Total 1000 / 1000 Balance 1000 / 1000 Lab / Micro Data 03/25/24 03:13 03/25/24 14:03 Labs: Laboratory Results - last 24 hr 03/24/24 20:50: WBC 7.5, RBC 4.64, Hgb 14.4, Hct 41.0, MCV 88.4, MCH 31.0, MCHC 35.1, RDW Std Deviation 42.4, RDW Coeff of Christiane 13.2, Plt Count 324, MPV 10.0, Immature Gran % (Auto) 0.300, Neut % (Auto) 56.4, Lymph % (Auto) 31.2, [place] % (Auto) 9.2, Eos % (Auto) 2.5, Baso % (Auto) 0.4, Absolute Neuts (auto) 4.2, Absolute Lymphs (auto) 2.34, Nucleated RBC % 0, D-Dimer Quant (PE/DVT) 0.33, Sodium 135 L, Potassium 2.8 L, Chloride 99, Carbon Dioxide 19.0 L, Anion Gap 17 H, BUN 18, Creatinine 1.29 H, Estim Creat Clear Calc 53.64, Est GFR (MDRD) Af Amer 55 L, Est GFR (MDRD) Non-Af 46 L, BUN/Creatinine Ratio 14.0, Glucose 146 H, Calcium 9.7, Troponin I High Sens 8 06/12/24 23:08: Phosphorus 2.4 L, Magnesium 2.1, Troponin I High Sens 55 H 03/25/24 00:18: Lactic Acid 1.0 03/25/24 03:13: WBC 6.4, RBC 4.36, Hgb 13.2, Hct 39.2, MCV 89.9, MCH 30.3, MCHC 33.7, RDW Std Deviation 43.5, RDW Coeff of Christiane 13.2, Plt Count 283, MPV 9.4, Sodium 139, Potassium 2.8 L, Chloride 105, Carbon Dioxide 26.0, Anion Gap 8, BUN 16, Creatinine 0.89, Estim Creat Clear Calc 74.71, Est GFR (MDRD) Af Amer 84, Est GFR (MDRD) Non-Af 70, BUN/Creatinine Ratio 17.9, Glucose 107 H, Calcium 9.3, Troponin I High Sens 112 H, TSH 3.24 03/25/24 06:15: Troponin I High Sens 119 H 03/25/24 06:25: Urine Color Yellow, Urine Clarity Clear, Urine pH 7.0, Ur Specific [place] 1.005, Urine Protein Negative, Urine Glucose (UA) Normal, Urine Ketones Negative, Urine Occult Blood Negative, Urine Nitrite Negative, Urine Bilirubin Negative, Urine Urobilinogen Normal, Ur Leukocyte Esterase Negative, Urine RBC 0 SEEN, Urine WBC 0 SEEN, Ur Squamous Epith Cells 0 SEEN, Urine Bacteria 0 SEEN, Urine Mucus 0 SEEN, Ur Random Sodium 81, Urine Potassium 21.0, Urine Chloride 53 03/25/24 14:03: Sodium 140, Potassium 3.1 L, Chloride 107, Carbon Dioxide 26.0, Anion Gap 7, BUN 15, Creatinine 0.90, Estim Creat Clear Calc 73.88, Est GFR (MDRD) Af Amer 84, Est GFR (MDRD) Non-Af 69, BUN/Creatinine Ratio 16.7, Glucose 139 H, Calcium 9.2 ABG Data ABG results: ABG 03/25/24 00:03 Specimen Type ART Sample Site R Radial pH 7.43 Bicarbonate Actual 26.5 H Total CO2 28 Base Excess 2 O2 Saturation 99 O2 % 2.0 ABG pCO2 39.8 ABG pO2 113 H Sumit Test Positive O2 Delivery Device Cannula Vent Mode Not entered Radiography Diagnostic Testing: Radiology Impression Chest X-Ray 03/24/24 21:00 IMPRESSION: Normal x-ray examination of the chest. Electronically Signed: Taqueria Paul MD at 21:37 EDT Reading Location ID and State: [facility] / [place] Tel , Service support , Echocardiogram 03/25/24 01:33 Interpretation Summary Normal LV size. Left ventricular systolic function is normal. The left ventricular ejection fraction is 65 %. Structurally normal valves. Ordering Physician: Marcus Hurtado Referring Physician: Adrianna Basilio Performed By: Arely Carey, NASRIN, RVT Physical Exam Const alert, oriented x3 and no apparent distress General Appearance: cooperative and well developed HEENT normocephalic, head/scalp atraumatic, moist oral mucous membranes and oropharynx normal Eyes PERRL and EOMs intact bilaterally Neck no lymphadenopathy and supple Lymph Lymphatic: no lymphadenopathy noted and no lymphedema noted Resp normal respiratory effort, normal air movement and clear to auscultation bilaterally Cardio regular rate, regular rhythm, S1 normal heart sound, S2 normal heart sound and no murmurs GI normal to inspection, nondistended, normoactive bowel sounds, soft to palpation, non-tender and non-distended Extremity normal capillary refill, no clubbing, cyanosis or edema and no calf tenderness General Extremity: no tenderness to palpation of joints or extremities Skin General Skin Exam: no breakdown Neuro CN's II-XII intact bilaterally, no focal motor deficits, no sensory deficits noted and deep tendon reflexes 2+ bilaterally Motor Exam: strength 5/5 throughout and general weakness Psych thought process normal, cooperative and affect normal Appearance: appropriate Assessment & Plan Assessment/Plan (1) Elevated troponin: (2) Hypokalemia: (3) SVT (supraventricular tachycardia): PLAN: Plan #SVT Came in with complaints of tachycardia. In the EMS she was thought to be in SVT which resolved with a Vasalva maneuver. She was hypokalemic and also had increased caffeine intake and this was thought to be causing her symptoms. On Coreg 12.5 mg twice daily. 2D echo done showed normal left ventricular size and systolic function with EF of 65% and structurally normal valves. TSH WNL #Chest pain: Likely due to SVT. She keeps on having symptoms she refers throughout described and describes as a pressure-like pain. 2D echo as above. SL nitroglycerin prn. #Elevated creatinine: Resolved. Cr is down to 0.9 #Hypokalemia: Potassium was 2.8, now 3.1. Will replace and trend. #Hypertension: On amlodipine, and triamterene hydrochlorothiazide. Started on Coreg. Triamterene hydrochlorothiazide discontinued. #Anxiety and depression: On fluoxetine DVT prophylaxis: lovenox Charges/Coding Visit Charges Inpatient E&M: 54313 Subs Hosp L2
[2024-03-25] MEDS: Potassium Chloride 10mEq/100mL 10 MEQ/100 ML IV.SOLN. 100 MEQ IV BOLUS ×4 (15:28→18:49)
[2024-03-25 15:39] LABS: Hemoglobin A1c 5.3 % (3.8-5.6)
--- NOTE | 2024-03-25 16:24 | CASEMGMT ---
Advance Directive Received advance directive validation notice. Chart reviewed and noted patient answered upon admission that does not have a POAHC or Living Will. Patient also declined upon admission wanting further information. No further needs identified or requested at this time. -CHRISTOPHER Redmond
[2024-03-26 05:24] LABS: Cholesterol 159 mg/dL (200); High Density Lipoprotein 36 mg/dL; Triglycerides 92 mg/dL; Very Low Density Lipoprotein 18 mg/dL (5-40)
--- NOTE | 2024-03-26 05:55 | EKG12_ITS ---
Test Reason : STRESS TEST Blood Pressure : / mmHG Vent. Rate : 071 BPM Atrial Rate : 071 BPM P-R Int : 172 ms QRS Dur : 078 ms QT Int : 436 ms P-R-T Axes : 046 062 026 degrees QTc Int : 473 ms Normal sinus rhythm Normal ECG When compared with ECG of 26-MAR-2024 05:46, MANUAL COMPARISON REQUIRED, DATA IS UNCONFIRMED Confirmed by MIKI PIMENTEL, MITA ([id number]), makeup editor BRITNI GARCIA ([id number]) on 03/30/2024 9:28:27 AM Referred By: Confirmed By:MITA LIVINGSTON MD
[2024-03-26 06:30] VITALS: BP 125/93; PULSE 72; RESP 15; TEMP 36.1; O2SAT 100
[2024-03-26 07:20] LABS: Anion Gap 8 (5-15); BUN 17 mg/dL (7-18); BUN/Creat Ratio 22.5 RATIO (10-20); Calcium,Total 8.4 mg/dL (8.5-10.1); Chloride 112 mmol/L (98-107); Creatinine, Serum 0.75 mg/dL (0.55-1.02); EST Glomerular Filtration Rate 85 mL/min (>60); Est Glom Filt Rate - Afr Amer 102 mL/min (>60); Estimated Creatinine Clearance 88.65 ml/min; Glucose 95 mg/dL (74-106); Potassium 3.3 mmol/L (3.5-5.1); Sodium Level 142 mmol/L (136-145)
[2024-03-26] MEDS: Potassium Chloride Oral Tablet 20 MEQ 40 MEQ PO (07:58)
[2024-03-26 08:04] VITALS: O2SAT 98
[2024-03-26 11:24] VITALS: BP 134/96; PULSE 69; RESP 15; TEMP 36.6; O2SAT 100
[2024-03-26] MEDS: amLODIPine 5 MG Tablet PO (11:29)
[2024-03-26] MEDS: Multivitamins,Therapeutic Tablet 1 TABLET PO (11:29)
[2024-03-26] MEDS: Carvedilol 12.5 MG Tablet PO (11:29)
[2024-03-26] MEDS: Fluoxetine HCl 40 MG CAPSULE PO (11:29)
--- NOTE | 2024-03-26 13:51 | DS.PCM_ITS ---
Providers Date of Admission: 03/25/24 Date of Discharge: 03/26/24 Primary Care Physician: Adrianna Basilio, SHASTA-C Reason For Visit: CHEST PAIN AND PALPITATIONS Diagnosis Discharge Diagnosis (1) Elevated troponin: Status: Acute Code(s): R79.89 - Other specified abnormal findings of blood chemistry (2) Hypokalemia: Status: Acute Code(s): E87.6 - Hypokalemia (3) SVT (supraventricular tachycardia): Status: Acute Code(s): I47.10 - Supraventricular tachycardia, unspecified Plan #SVT * Came in with complaints of tachycardia. In the EMS she was thought to be in SVT which resolved with a Vasalva maneuver. * She was hypokalemic and also had increased caffeine intake and this was thought to be causing her symptoms. * On Coreg 12.5 mg twice daily. * 2D echo done showed normal left ventricular size and systolic function with EF of 65% and structurally normal valves. * TSH WNL * #Chest pain: Likely due to SVT. She keeps on having symptoms she refers throughout described and describes as a pressure-like pain. 2D echo as above. SL nitroglycerin prn. #Elevated creatinine: Resolved. Cr is down to 0.9 #Hypokalemia: Potassium was 2.8, now 3.1. Will replace and trend. #Hypertension: On amlodipine, and triamterene hydrochlorothiazide. Started on Coreg. Triamterene hydrochlorothiazide discontinued. #Anxiety and depression: On fluoxetine DVT prophylaxis: lovenox Medications at Discharge Home Medications fluoxetine 40 mg capsule 40 mg PO DAILY 08/15/17 multivitamin 1 tab PO DAILY 07/16/22 zinc oxide 15 mg-herbal complex no.303 capsule 1 cap PO DAILY 07/16/22 amlodipine 5 mg tablet 5 mg PO DAILY 03/24/24 fluoxetine 60 mg tablet 60 mg PO DAILY 03/24/24 carvedilol 12.5 mg tablet 12.5 mg PO BID #60 tabs 03/26/24 potassium chloride 20 mEq tablet,extended release 20 meq PO DAILY #10 tabs 03/26/24 Hospital Course Operations None Procedures 2-D Echocardiogram and Stress test Summary of Care Provided Minutes Spent on Discharge: 47 Hospital Course: Patient is a 53-year-old female with a past medical history as outlined was admitted through the ED on 03/25/2024 with a complaint of chest pain and palpitations. She started having the chest pain and pressure and felt her heart was racing at that time. She does have a history of hypertension but denied any previous history of racing heart. She denied any chronic alcohol use and had like an energy drink earlier on the day of admission. The EMS was called and when EMS arrived her heart rate was found to be in the 180s. She did perform a Valsalva maneuver and she converted to normal sinus rhythm with heart rate of 110. His symptoms did not recur. Labs were significant for potassium of 2.8 with bicarb of 19 and creatinine was 1.29. Magnesium was 2.1. Troponin trended up from 8-55 and then 112. EKG which came into the ED showed normal sinus chest x-ray showed no acute cardiopulmonary pathology. She was admitted and managed for SVT likely due to hypokalemia. Her potassium was aggressively replaced. She had 2D echo which showed EF of 65% with normal left ventricular size and systolic function and structurally normal valves. TSH was within normal limits. Her triamterene-hydrochlorothiazide was discontinued. As stated she was started on Coreg. She did complain of some chest pain during admission so a stress test was done which showed no evidence of any ischemic changes. She was discharged home on 03/26/2024. She was discharged on p.o. carvedilol 12.5 mg twice daily in addition to her p.o. amlodipine that she was already taking. She was discharged on p.o. potassium 20 mEq daily and is to follow-up with her primary care doctor for repeat BMP within 3 to 4 days to evaluate her potassium level. Patient seen and examined prior to discharge. She had no active complaints and had an uneventful night. Review of systems otherwise negative. Labs and vitals reviewed. Home medication reviewed and reconciled. Physical Exam Const alert, oriented x3 and no apparent distress General Appearance: cooperative, comfortable and well kempt Orientation / Consciousness: awake Exam Limitations: no limitations HEENT normocephalic, head/scalp atraumatic, hearing grossly normal bilaterally, moist oral mucous membranes and oropharynx normal Mouth: oral and palatal mucosa normal Eyes PERRL, EOMs intact bilaterally and conjunctivae normal Neck no lymphadenopathy and supple Resp normal respiratory effort, no retractions, no use of accessory muscles and clear to auscultation bilaterally Cardio regular rate, regular rhythm, S1 normal heart sound, S2 normal heart sound and no murmurs GI normal to inspection, nondistended, normoactive bowel sounds, soft to palpation, non-tender and non-distended Extremity normal to inspection, full ROM and no clubbing, cyanosis or edema Skin no rashes or lesions noted and no wounds Neuro oriented x3, CN's II-XII intact bilaterally, moves all extremities, no focal motor deficits and no sensory deficits noted Sensorium / Orientation: awake and alert Motor Exam: strength 5/5 throughout Psych affect normal Weight / BMI Weight Weight: 184 lb 4.903 oz Body Mass Index (BMI) 31.6 ABG / Lab / Microbiology Data 03/25/24 03:13 03/26/24 04:31 Laboratory: Laboratory Results - last 24 hr 03/25/24 03:13: Hemoglobin A1c 5.3 03/25/24 14:03: Sodium 140, Potassium 3.1 L, Chloride 107, Carbon Dioxide 26.0, Anion Gap 7, BUN 15, Creatinine 0.90, Estim Creat Clear Calc 73.88, Est GFR (MDRD) Af Amer 84, Est GFR (MDRD) Non-Af 69, BUN/Creatinine Ratio 16.7, Glucose 139 H, Calcium 9.2 03/26/24 04:31: Sodium 142, Potassium 3.3 L, Chloride 112 H, Carbon Dioxide 22.0, Anion Gap 8, BUN 17, Creatinine 0.75, Estim Creat Clear Calc 88.65, Est GFR (MDRD) Af Amer 102, Est GFR (MDRD) Non-Af 85, BUN/Creatinine Ratio 22.5 H, Glucose 95, Calcium 8.4 L, Triglycerides 92, Cholesterol 159, LDL Cholesterol 105, VLDL Cholesterol 18, HDL Cholesterol 36 L D/C Instructions Discharge Diet: Low fat / Low cholesterol Discharge Activity: Return to Normal Activity Weight Bearing Status: Weight bearing as tolerated Call your doctor if you observe: Fever of 101 or Higher, Shortness of breath, Dizziness, Swelling in the ankles, Chest pain and Increased palpitations (irregular heartbeat) Meaningful Use Info Meaningful Use Meaningful Use Diagnoses (Choose all that apply): None applicable Ischemic Stroke Statin Dosing Therapy Reference: STATIN DOSE THERAPY REFERENCE: * Patients > 75 years receive moderate or high dose statin therapy. * Patients 75 years or YOUNGER should receive HIGH intensity statin dose unless contraindicated. You will be required to document reason for non-treatment if statin daily dose does not meet guidelines. HIGH DOSE STATIN THERAPY DAILY Atorvastatin > than or = to 40 mg Rosuvastatin > than or = to 20 mg Amlodipine + Atorvastatin > than or = to 2.5/40 mg Ezetimibe + Simvastatin 10/80 mg Simvastatin 80mg Discharge Plan Admission Admit Date/Time: 03/25/24 01:02 Primary Reason for Your Visit: SVT, hypokalemia Attending Provider: Laurita Patiño Primary Care Provider: Adrianna Basilio Consulting Providers: Marcus Hurtado Instructions Patient Instructions: Supraventricular Tachycardia Discharge Orders/Prescriptions Prescriptions: New carvedilol 12.5 mg Tablet 12.5 mg PO BID Qty: 60 2RF potassium chloride 20 mEq tablet extended release 20 meq PO DAILY Qty: 10 0RF Continued zinc oxide-herbal no.303 15 mg capsule 1 cap PO DAILY multivitamin Tablet 1 tab PO DAILY fluoxetine 40 MG capsule 40 mg PO DAILY Patient Comments: amlodipine 5 mg tablet 5 mg PO DAILY fluoxetine 60 mg tablet 60 mg PO DAILY Discontinued triamterene-hydrochlorothiazid 75-50 mg tablet 0.5 tab PO DAILY Referrals / Follow Up: dArianna Basilio, [employer]-[facility] [Primary Care Provider] - Within 1 Week Disposition Disposition (needs filled in before D/C Order can be placed): Home, Self Care Charges/Coding Visit Charges Inpatient E&M: 53831 Disch Hosp >30min
--- NOTE | 2024-03-26 13:51 | DCINST_ITS ---
Discharge Instructions Diet Discharge Diet: Low fat / Low cholesterol Activity Discharge Activity: Return to Normal Activity Weight Bearing Status: Weight bearing as tolerated Dressing / Incision Call your doctor if you observe: Fever of 101 or Higher, Shortness of breath, Dizziness, Swelling in the ankles, Chest pain and Increased palpitations (irregular heartbeat) Follow Up Care Test Results: Test results from this visit will be discussed in further detail at your follow- up appointment, if applicable. Discharge Plan Admission Admit Date/Time: 03/25/24 01:02 Primary Reason for Your Visit: SVT Attending Provider: Laurita Patiño Primary Care Provider: Adrianna Basilio Consulting Providers: Marcus Hurtado Instructions Patient Instructions: Supraventricular Tachycardia Discharge Orders/Prescriptions Prescriptions: New carvedilol 12.5 mg Tablet 12.5 mg PO BID Qty: 60 2RF potassium chloride 20 mEq tablet extended release 20 meq PO DAILY Qty: 10 0RF Continued zinc oxide-herbal no.303 15 mg capsule 1 cap PO DAILY multivitamin Tablet 1 tab PO DAILY fluoxetine 40 MG capsule 40 mg PO DAILY Patient Comments: amlodipine 5 mg tablet 5 mg PO DAILY fluoxetine 60 mg tablet 60 mg PO DAILY Discontinued triamterene-hydrochlorothiazid 75-50 mg tablet 0.5 tab PO DAILY Referrals / Follow Up: Adrianna Basilio, SHASTA-C [Primary Care Provider] - Within 1 Week Disposition Disposition (needs filled in before D/C Order can be placed): Home, Self Care
--- NOTE | 2024-03-26 14:19 | CASEMGMT ---
Patient has order for discharge. RN CM in to discuss needs at discharge. Patient denies need or help at discharge. Patient had no further questions or concerns.
--- NOTE | 2024-03-26 17:13 | STRESSREP ---
Stress Test Report Exercise myocardial perfusion stress test. 53-year-old lady with a history of supraventricular tachyarrhythmia Stress protocol: Resting EKG demonstrates normal sinus rhythm with a rate of 65 bpm resting blood pressure is 136/90 mmHg. The patient exercised according to the regular Tej protocol for a total duration of 6 minutes and 30 seconds attaining a maximum heart rate of 146 bpm which was 88% of maximum predicted heart rate; the maximum workload was 8.4 metabolic equivalents. At rest there were no ST or T wave changes noted to suggest ischemia and at peak exercise upsloping ST changes only were noted which did not meet the criteria for ischemia. No clinical angina was noted the test was terminated due to the target heart rate being achieved/fatigue. The peak blood pressure was 150/90 mmHg. Rate-pressure product was 19,000. Myocardial perfusion protocol. 11.0 mCi of technetium 99m sestamibi was injected at rest. The patient exercised according to regular Tej protocol for total duration of 6 minutes and 30 seconds and at peak exercise 33.8 mCi of technetium 99m sestamibi was injected stress images were obtained stress and rest images were reconstructed in comparing the short axis vertical long and horizontal long axis. Gated images were also obtained. Perfusion SPECT analysis: Review of the stress images demonstrate normal uptake of tracer noted in all areas of the myocardium. The resting images similarly demonstrate normal uptake of tracer noted in all areas of the myocardium. No areas of reversibility are noted to suggest ischemia no previous infarct was noted. Gated SPECT analysis: The gated ejection fraction is 70%. Conclusion: Normal exercise myocardial perfusion stress test at a moderate workload Preserved ejection fraction.
== END 2024-03-26 13:43 | disposition home or self-care (01) ==
LOC: ED 03-25 00:25 → PCU 03-25 01:28
PROVIDERS: Admitting Provider Hospitalist; Emergency Provider Emergency Medicine; PCP Nurse Practitioner Family; Visit Provider Student in an Organized Health Care Education/Training Program
DX: I47.10 Supraventricular tachycardia, unspecified (principal); E87.6 Hypokalemia; I10 Essential (primary) hypertension; R06.02 Shortness of breath; Z87.891 Personal history of nicotine dependence; R79.89 Other specified abnormal findings of blood chemistry; Z79.899 Other long term (current) drug therapy; E66.9 Obesity, unspecified; Z68.31 Body mass index [BMI] 31.0-31.9, adult; F32.A Depression, unspecified; F41.9 Anxiety disorder, unspecified; E78.5 Hyperlipidemia, unspecified; K21.9 Gastro-esophageal reflux disease without esophagitis
CPT/HCPCS: 36415; 36600; 71045; 78452; 80048; 80061; 81001; 82436; 82803; 83036; 83605; 83735; 84100; 84133; 84300; 84443; 84484; 85025; 85027; 85379; 93005; 93017; 93306; 96361; 96365; 96366; 96375; 99221; 99285; A9500; J7030; A4216; G0378

== ENCOUNTER → 2024-03-31 | Outpatient (CLI) | payer BC, SELFPAY ==
[2024-03-31 11:48] LABS: Anion Gap 7 (5-15); BUN 13 mg/dL (7-18); BUN/Creat Ratio 15.9 RATIO (10-20); Calcium,Total 9.3 mg/dL (8.5-10.1); Chloride 110 mmol/L (98-107); Creatinine, Serum 0.82 mg/dL (0.55-1.02); EST Glomerular Filtration Rate 77 mL/min (>60); Est Glom Filt Rate - Afr Amer 93 mL/min (>60); Glucose 86 mg/dL (74-106); Sodium Level 144 mmol/L (136-145)
== END | disposition home or self-care (01) ==
LOC: LABSPEC 10:09
PROVIDERS: PCP Nurse Practitioner Family; Visit Provider Nurse Practitioner Family
DX: E87.6 Hypokalemia (principal)
CPT/HCPCS: 80048

== ENCOUNTER → 2024-06-07 | Outpatient (CLI) | payer BC, SELFPAY ==
--- NOTE | 2024-06-07 09:03 | RAD_ITS ---
STUDY: X-RAY - LEFT HAND REASON FOR EXAM: Female, 54 years old. Pain following a fall. TECHNIQUE: 2 view(s) of the hand. COMPARISON: None. FINDINGS: Normal radiocarpal articulation. Normal distal radioulnar joint. Nondisplaced transverse fracture of the distal radial metaphysis. Normal visualized carpal bones. Normal carpal articulations Normal carpometacarpal articulation of the thumb. Normal second through fifth carpometacarpal joints. Normal metacarpi. Normal metacarpophalangeal joint of the thumb. Normal interphalangeal joint of the thumb. Normal proximal and distal phalanges of the thumb. Normal metacarpophalangeal joints of the second through fifth fingers. Normal proximal and distal interphalangeal joints of the second through fifth fingers. Normal phalanges of the second through fifth fingers. Soft tissue swelling. RAD/Hand 2 Views IMPRESSION: Normal x-ray examination of the hand. Nondisplaced transverse fracture of the distal radial metaphysis. Electronically Signed: Krzysztof Knapp MD at 9:17 EDT ,
--- NOTE | 2024-06-07 09:03 | RAD_ITS ---
STUDY: X-RAY - LEFT WRIST REASON FOR EXAM: Female, 54 years old. Pain following a fall. Soft tissue swelling. TECHNIQUE: 2 view(s) of the wrist were obtained. COMPARISON: None. FINDINGS: There is a subtle nondisplaced transverse fracture of the distal radial metaphysis. Normal radiocarpal articulation. Normal distal radioulnar articulation. Normal carpal bones. Normal carpal articulations. Normal carpometacarpal articulation of the thumb. Normal second through fifth carpometacarpal articulations. Normal visualized metacarpal bones. Soft tissue swelling. RAD/Wrist 2 Views IMPRESSION: There is a nondisplaced transverse fracture of the distal radial metaphysis with overlying soft tissue swelling. Electronically Signed: Krzysztof Knapp MD at 9:16 EDT ,
== END | disposition home or self-care (01) ==
LOC: MTRAD 09:02
PROVIDERS: PCP Nurse Practitioner Family; Referring Provider Physician Assistant; Visit Provider Physician Assistant
DX: T14.8XXA Other injury of unspecified body region, initial encounter (principal)
CPT/HCPCS: 73100; 73120

== ENCOUNTER 2024-08-23 05:56 | Day surgery (SDC) | payer BC, SELFPAY ==
[2024-08-23] VITALS (9 sets, daily range): BP systolic 111–130; BP diastolic 68–77; PULSE 62–73; RESP 16–18; TEMP 36.3–36.9; O2SAT 97–99; BMI 36.7
[2024-08-23] MEDS: Lactated Ringers 1,000 ML 15 ML IV (06:38)
[2024-08-23] MEDS: Lidocaine 1% /Epi 1:100 (20ml) 20 ML Vial (06:50)
[2024-08-23] MEDS: Cefazolin 2 GM in Syringe IV (07:29)
[2024-08-23] MEDS: Bupiv/Epi 0.25% 30 ML Vial (07:37)
[2024-08-23] MEDS: oxyCODONE 5 MG Tablet PO (09:53)
== END 2024-08-23 11:15 | disposition home or self-care (01) ==
LOC: SDC 05:58 → AC 05:59
PROVIDERS: PCP Nurse Practitioner Family; Referring Provider Surgery Plastic and Reconstructive Surgery; Visit Provider Surgery Plastic and Reconstructive Surgery
PROC: (CPT 26480; principal; 2024-08-23 07:15)
DX: S56.312A Strain of extensor or abductor muscles, fascia and tendons of left thumb at forearm level, initial encounter (principal); S52.502S Unspecified fracture of the lower end of left radius, sequela; X58.XXXA Exposure to other specified factors, initial encounter; I10 Essential (primary) hypertension; Z79.899 Other long term (current) drug therapy; Z87.891 Personal history of nicotine dependence
CPT/HCPCS: 26480; 01810; J7120; J2405

== ENCOUNTER 2024-08-24 11:27 | Observation (INO) | payer BC, SELFPAY ==
[2024-08-24 11:08] VITALS: BMI 34.0
[2024-08-24 11:12] VITALS: BP 148/86; PULSE 71; RESP 18; TEMP 36.8; O2SAT 98
[2024-08-24] MEDS: oxyCODONE 5 MG Tablet PO ×2 (11:45→17:32)
[2024-08-24] MEDS: Ketorolac 15 MG/ML Vial IV (11:46)
[2024-08-24] MEDS: 0.9% Saline Lock 10 ML Syringe IV ×4 (11:46→20:59)
[2024-08-24] MEDS: HYDROmorphone 1 MG/ML Syringe IV ×2 (12:19→20:59)
--- NOTE | 2024-08-24 13:10 | RAD_ITS ---
STUDY: X-RAY - LEFT HAND REASON FOR EXAM: Female, 54 years old. Postop pain -- portable - splint needs removed. TECHNIQUE: 3 views of the left hand. COMPARISON: Left wrist radiographs dated 07/22/2024. FINDINGS: Unchanged appearance of healing transverse fracture at the distal radial metaphysis. Normal radiocarpal articulation. Normal distal radioulnar joint. Normal visualized carpal bones. Normal carpal articulations Normal carpometacarpal articulation of the thumb. Normal second through fifth carpometacarpal joints. Normal metacarpi. Normal metacarpophalangeal joint of the thumb. Normal interphalangeal joint of the thumb. Normal proximal and distal phalanges of the thumb. Normal metacarpophalangeal joints of the second through fifth fingers. Normal proximal and distal interphalangeal joints of the second through fifth fingers. Normal phalanges of the second through fifth fingers. There is no demonstrated acute fracture. The soft tissue structures are unremarkable. RAD/Hand Min 3 Views IMPRESSION: Unchanged appearance of healing transverse fracture at the distal radial metaphysis. No demonstrated acute fracture. Electronically Signed: Trevon Beverly MD at 14:59 EST ,
[2024-08-24] MEDS: Cephalexin 500 MG Capsule PO ×2 (14:11→21:06)
[2024-08-24 14:30] VITALS: BP 113/68; PULSE 76; RESP 16; TEMP 37.1; O2SAT 96
[2024-08-24] MEDS: HYDROmorphone 0.5 MG/0.5 ML SYRINGE IV (14:36)
--- NOTE | 2024-08-24 17:20 | HP.PCM.SX_ITS ---
HPI - General General Date of Admission: 08/24/24 Date of Service: 08/24/24 Chief Complaint: Uncontrolled left hand pain after surgery on 08/23/24 HPI Narrative ALFONSO FISH, is a 54 F who presents for uncontrolled 10/10 pain on the dorsal as pect of her left hand after her surgery yesterday, 08/23/24, for Left Extensor [employer] transfer to the Left Extensor Pollicis Longus Tendon. She she phoned our office this morning stating that she has been up since 2 AM with uncontrolled pain. She been taking her Tylenol and her oxycodone as prescribed with no pain relief. She is unable to take NSAIDs due to it causing gastric upset. I brought her into our office to evaluate her and remove her splint to make sure it was not too tight. The majority of her pain is located on the dorsal aspect of her left hand and she is complaining about her fingers hurting. Her incisions were clean and dry. There is minimal swelling. No signs of hematoma. I discussed with Dr. Carney her her 10 out of 10 pain, and it was decided to admit her for better pain control. [facility] Medical History Acute sinusitis Acute appendicitis Wears glasses Post-menopausal Anxiety Depression Former smoker History of echocardiogram History of stress test Hypertension History of irregular heartbeat Contusion of left hand Fracture of radius, distal, left, closed SVT (supraventricular tachycardia) HTN (hypertension) Home Medications ?Medication ?Instructions ?Recorded ?Last Taken ?Type multivitamin 1 tab PO DAILY vitamin 07/16/22 08/22/24 History amlodipine 5 mg tablet 5 mg PO DAILY blood pressure 03/24/24 08/23/24 History fluoxetine 60 mg tablet 60 mg PO DAILY mental health 03/24/24 08/22/24 History carvedilol 12.5 mg tablet 12.5 mg PO BID #60 tabs 03/26/24 08/23/24 Rx cholecalciferol (vitamin D3) 25 25 mcg PO DAILY 08/17/24 08/22/24 History mcg (1,000 unit) capsule (Vitamin D3) cyanocobalamin (vitamin B-12) 50 50 mcg PO DAILY 08/17/24 08/22/24 History mcg tablet (Vitamin B-12) cephalexin 500 mg capsule 500 mg PO Q8H 7 days #21 caps 08/23/24 Unknown Rx ondansetron 4 mg disintegrating 4 mg PO Q8H PRN nausea and 08/23/24 Unknown Rx tablet vomiting #10 tabs oxycodone 5 mg tablet 5 mg PO Q6H PRN pain 5 days #14 08/23/24 Unknown Rx tabs Allergy/AdvReac Type Severity Reaction Status Date / Time No Known Allergies Allergy Verified 08/24/24 09:43 Family History Father Hypertension Cancer Mother Kidney disease COPD (chronic obstructive pulmonary disease) Hypertension Surgical History Hx of colonoscopy History of appendectomy Social History household members: family housing: house Smoking Status: Former smoker how long ago did patient quit smoking: quit 15 yr ago alcohol intake: current details: rarely for occasions substance use type: does not use additional social history: no asa or ibuprofen, no edibles. No history of blood clotting dx ROS Constitutional Constitutional: Denies chills or fever(s) Eyes Eyes: Reports systems reviewed and no addt'l complaints, except as documented ENT HEENT: Reports systems reviewed and no addt'l complaints, except as documented Cardiovascular Cardiovascular: Denies chest pain, dyspnea or palpitations Respiratory/Chest Respiratory/Chest: Denies cough or dyspnea Gastrointestinal Gastrointestinal: Reports nausea; Denies abdominal pain, change in bowel habits or vomiting Genitourinary Genitourinary: Denies change in urinary stream, difficulty urinating or dysuria Musculoskeletal Musculoskeletal: Reports systems reviewed and no addt'l complaints, except as documented; Denies numbness Integumentary Integumentary: Denies jaundice, new lesions, non-healing lesions, rash or skin ulcer Neurologic Neurologic: Denies dizziness, focal weakness, loss of vision or numbness Psychiatric Psychiatric: Denies anxiety or depression Endocrine Endocrinology: Reports systems reviewed and no addt'l complaints, except as documented Hematologic/Lymphatic Hematologic/Lymphatic: Reports systems reviewed and no addt'l complaints, except as documented Allergic/Immunologic Allergic/Immunologic: Reports systems reviewed and no addt'l complaints, except as documented Vital Signs Vital Signs Vital Signs: 08/24/24 11:08 08/24/24 11:12 08/24/24 13:17 Temperature 98.2 F Temperature Source Oral Pulse Rate 71 Respiratory Rate 18 Respiratory Effort Normal Non-Labored Respiratory Depth Normal Respiratory Pattern Normal Blood Pressure 148/86 H Blood Pressure Mean 106 Blood Pressure Source Monitor Blood Pressure Position Semi-Fowlers Blood Pressure Location Right Arm Pulse Ox 98 Oxygen Delivery Method Room Air Room Air Room Air 08/24/24 14:30 Temperature 98.7 F Temperature Source Oral Pulse Rate 76 Respiratory Rate 16 Respiratory Effort Respiratory Depth Respiratory Pattern Blood Pressure 113/68 Blood Pressure Mean 83 Blood Pressure Source Monitor Blood Pressure Position Semi-Fowlers Blood Pressure Location Right Arm Pulse Ox 96 Oxygen Delivery Method Room Air Weight Weight: 198 lb 3.2 oz Body Mass Index (BMI) 34.0 Physical Exam Const oriented x3 Resp normal respiratory effort and normal air movement Effort and Inspection: able to speak in complete sentences Cardio regular rate and regular rhythm Extremity normal capillary refill Extremity Narrative: Left hand with mild swelling. Incisions are dry and intact. No hematoma. She is able to move the fingers on her left hand. She has pain with movement of her left index finger and her left thumb. The pain is located at the base of each of those fingers and over the incision in that area on the dorsal aspect of her hand. She has no numbness or tingling of her fingers. They are pink, warm, dry with good capillary refill <[address] Carney was present to performed a detailed evaluation. Results Imaging Radiology Impression Hand X-Ray 08/24/24 13:10 IMPRESSION: Unchanged appearance of healing transverse fracture at the distal radial metaphysis. No demonstrated acute fracture. Electronically Signed: Trevon Beverly MD at 14:59 EST , Assessment & Plan Assessment/Plan (1) Acute post-operative pain: (2) Uncontrolled pain: (3) Rupture of extensor pollicis longus tendon: PLAN: Plan Patient admitted for pain control. Obtained an X-ray of her left hand. Keep thumb spica splint in place. Keep left hand elevated to help decrease swelling. DVT prophylaxis. Charges/Coding Procedures Integumentary 111xxx-113xx: 30010 Global Visit
[2024-08-24 17:22] VITALS: BP 129/83; PULSE 68; RESP 16; TEMP 36.6; O2SAT 96
[2024-08-24] MEDS: Docusate Sodium 100 MG Capsule PO (17:32)
[2024-08-24] MEDS: Acetaminophen 325 MG Tablet 650 MG PO (17:33)
[2024-08-24 20:51] VITALS: BP 145/87; PULSE 66; RESP 18; TEMP 37.1; O2SAT 98
[2024-08-24] MEDS: Carvedilol 12.5 MG Tablet PO (21:06)
[2024-08-25 01:12] VITALS: BP 146/84; PULSE 68; RESP 18; TEMP 36.6; O2SAT 95
[2024-08-25] MEDS: oxyCODONE 5 MG Tablet PO ×3 (01:17→18:13)
[2024-08-25] MEDS: Acetaminophen 325 MG Tablet 650 MG PO ×2 (01:17→18:13)
[2024-08-25] MEDS: DiphenhydrAMINE 25 MG Capsule PO ×2 (01:17→11:21)
[2024-08-25 05:19] VITALS: BP 152/81; PULSE 67; RESP 16; TEMP 36.7; O2SAT 97
[2024-08-25] MEDS: Cephalexin 500 MG Capsule PO ×2 (05:23→13:15)
--- NOTE | 2024-08-25 07:02 | PCM.PN.BLA ---
Progress Note Patient post op day 2 from [facility] to EPL transfer for EPL rupture 2/2 her closed distal radius fracture. I removed the splint yesterday and examined the hand. No abnormalities. Xray obtained and no bony abnormalities. Distal radius healed. Reports severe pain on the right dorsal hand distal incision over the index finger distal metacarpal. Reports it as sharp and severe. Pain is not in the forearm or in the thumb. Physical Exam Narrative INSPECTION Splint removed. No hematoma. Incisions c/d/i. Thumb is in proper position (extended). Palpation: No TTP of the forearm/EIP muscle. No pain over the thumb. Pain to palpation over the index finger distal metacarpal incision. Motor: Able to bend and extend all MP, PIP, and DIP joints. Sensory: Intact to light touch on the radial and ulnar borders of the fingers and on the dorsum of the hand. Vascular: Finger tips are warm and well perfused with <2 second capillary refill. Assessment & Plan Assessment/Plan (1) Uncontrolled pain: (2) Acute post-operative pain: PLAN: Plan Unsure of the etiology of the severe 10/10 sharp pain at this time. Does not appear to be a nerve-type pain (no numbness/tingling, no electrical pain), but will start Neurontin. I do not think I got a nerve with the suture or a tendon with the suture closure of skin (was skin only closure), but this would be on the differential and will be further assessed for. Does not appear to have a hematoma or a bony abnormality. No pain at tendon repair site, but pain at donor site. I am going to block with 0.25% Marcaine at the donor site and re-check the patient this afternoon. Procedures Integumentary 111xxx-113xx: [id number] Global Visit
[2024-08-25 09:39] VITALS: BP 148/99; PULSE 67; RESP 16; TEMP 36.9; O2SAT 96
[2024-08-25] MEDS: Bupivacaine 0.25% 30 ML Vial SC (10:01)
[2024-08-25] MEDS: Carvedilol 12.5 MG Tablet PO (10:01)
[2024-08-25] MEDS: Docusate Sodium 100 MG Capsule PO (10:01)
[2024-08-25] MEDS: Cholecalciferol (VIT D3) 25 MCG TABLET (1,000 UNITS) PO (10:02)
[2024-08-25] MEDS: FLUoxetine 20 MG Capsule 60 MG PO (10:02)
[2024-08-25] MEDS: Enoxaparin 40 MG/0.4 ML Syringe SC (10:02)
[2024-08-25] MEDS: amLODIPine 5 MG Tablet PO (10:02)
[2024-08-25] MEDS: Multivitamins,Therapeutic Tablet 1 TABLET PO (10:02)
[2024-08-25] MEDS: HYDROmorphone 0.5 MG/0.5 ML SYRINGE IV (10:04)
[2024-08-25] MEDS: 0.9% Saline Lock 10 ML Syringe IV (10:04)
[2024-08-25] MEDS: Gabapentin 100 MG Capsule PO ×2 (11:21→18:13)
[2024-08-25 13:12] VITALS: BP 143/86; PULSE 73; RESP 16; TEMP 36.6; O2SAT 97
--- NOTE | 2024-08-25 14:05 | DS.PCM_ITS ---
Providers Date of Admission: 08/24/24 Primary Care Physician: Adrianna Basilio, LEAD SOFTWARE TESTER-C Reason For Visit: PAIN CONTROL POST TENDON RUPTURE AND REPAIR Diagnosis Discharge Diagnosis (1) Uncontrolled pain: Status: Acute Code(s): R52 - Pain, unspecified (2) Acute post-operative pain: Status: Acute Code(s): G89.18 - Other acute postprocedural pain Plan Unsure of the etiology of the severe 10/10 sharp pain at this time. Does not appear to be a nerve-type pain (no numbness/tingling, no electrical pain), but will start Neurontin. I do not think I got a nerve with the suture or a tendon with the suture closure of skin (was skin only closure), but this would be on the differential and will be further assessed for. Does not appear to have a hematoma or a bony abnormality. No pain at tendon repair site, but pain at donor site. I am going to block with 0.25% Marcaine at the donor site and re-check the patient this afternoon. Medications at Discharge Home Medications multivitamin 1 tab PO DAILY vitamin 07/16/22 amlodipine 5 mg tablet 5 mg PO DAILY blood pressure 03/24/24 fluoxetine 60 mg tablet 60 mg PO DAILY mental health 03/24/24 carvedilol 12.5 mg tablet 12.5 mg PO BID #60 tabs 03/26/24 cholecalciferol (vitamin D3) 25 mcg (1,000 unit) capsule (Vitamin D3) 25 mcg PO DAILY 08/17/24 cyanocobalamin (vitamin B-12) 50 mcg tablet (Vitamin B-12) 50 mcg PO DAILY 08/17 cephalexin 500 mg capsule 500 mg PO Q8H 7 days #21 caps 08/23/24 ondansetron 4 mg disintegrating tablet 4 mg PO Q8H PRN nausea and vomiting #10 tabs 08/23/24 oxycodone 5 mg tablet 5 mg PO Q6H PRN pain 5 days #14 tabs 08/23/24 celecoxib 100 mg capsule (Celebrex) 100 mg PO BID #10 caps 08/25/24 gabapentin 100 mg capsule (Neurontin) 100 mg PO TID 7 days #21 caps 08/25/24 Hospital Course Operations None Procedures None Summary of Care Provided Minutes Spent on Discharge: 5 Hospital Course: Katie Garcia is a 54 YO female who underwent left EIP to left EPL tendon transfer on 23 Aug 2024. She was admitted from clinic by my nurse practitioner on POD 1 for severe left hand pain at the donor site of the tendon transfer (just proximal tot he extensor ugalde of the index finger). Pain improved with rest, elevation, and a local block with 0.25% Marcaine as well as addition of Neurontin. She denied any numbness in her fingers, or any pain in the thumb or the forearm. Patient did not have a hematoma or infection (splint taken down each day to check). Patient is feeling well at the time of discharge (25 Aug 2024 at 2 pm). Reports manageable pain. I will see her in the morning in clinic to check progress. Physical Exam Narrative INSPECTION Splint removed. No hematoma. Incisions c/d/i. Thumb is in proper position (extended). Palpation: No TTP of the forearm/EIP muscle. No pain over the thumb. Pain to palpation over the index finger distal metacarpal incision. Motor: Able to bend and extend all MP, PIP, and DIP joints. Sensory: Intact to light touch on the radial and ulnar borders of the fingers and on the dorsum of the hand. Vascular: Finger tips are warm and well perfused with <2 second capillary refill. Weight / BMI Weight Weight: 198 lb 3.2 oz Body Mass Index (BMI) 34.0 Radiography Diagnostic Testing: Radiology Impression Hand X-Ray 08/24/24 13:10 IMPRESSION: Unchanged appearance of healing transverse fracture at the distal radial metaphysis. No demonstrated acute fracture. Electronically Signed: Trevon Beverly MD at 14:59 EST , Meaningful Use Info Meaningful Use Meaningful Use Diagnoses (Choose all that apply): None applicable Ischemic Stroke Statin Dosing Therapy Reference: STATIN DOSE THERAPY REFERENCE: * Patients > 75 years receive moderate or high dose statin therapy. * Patients 75 years or YOUNGER should receive HIGH intensity statin dose unless contraindicated. You will be required to document reason for non-treatment if statin daily dose does not meet guidelines. HIGH DOSE STATIN THERAPY DAILY Atorvastatin > than or = to 40 mg Rosuvastatin > than or = to 20 mg Amlodipine + Atorvastatin > than or = to 2.5/40 mg Ezetimibe + Simvastatin 10/80 mg Simvastatin 80mg Discharge Plan Admission Admit Date/Time: 08/24/24 11:27 Attending Provider: Ilya Carney Primary Care Provider: Adrianna Basilio Discharge Orders/Prescriptions Prescriptions: New celecoxib [Celebrex] 100 mg capsule 100 mg PO BID Qty: 10 0RF gabapentin [Neurontin] 100 mg capsule 100 mg PO TID 7 Days Qty: 21 0RF No Action multivitamin Tablet 1 tab PO DAILY amlodipine 5 mg tablet 5 mg PO DAILY fluoxetine 60 mg tablet 60 mg PO DAILY carvedilol 12.5 mg Tablet 12.5 mg PO BID Qty: 60 2RF Vitamin B-12 50 mcg tablet 50 mcg PO DAILY cholecalciferol (vitamin D3) [Vitamin D3] 25 mcg (1,000 unit) capsule 25 mcg PO DAILY cephalexin 500 mg capsule 500 mg PO Q8H 7 Days Qty: 21 0RF ondansetron 4 mg tablet,disintegrating 4 mg PO Q8H PRN (Reason: nausea and vomiting) Qty: 10 0RF oxycodone 5 mg tablet 5 mg PO Q6H PRN (Reason: pain) 5 Days Qty: 14 0RF Rx Instructions: take q6 prn for severe pain Referrals / Follow Up: Adrianna Basilio, SHASTA-C [Primary Care Provider] - Disposition Disposition (needs filled in before D/C Order can be placed): Home, Self Care Charges/Coding Procedures Integumentary 111xxx-113xx: [id number] Global Visit
--- NOTE | 2024-08-25 15:48 | PHA.DC_ITS ---
Pharmacy [facility] has performed discharge medication reconciliation and counseling for this patient. 1. CELECOXIB 100MG PO BID X 5 DAYS 2. GABAPENTIN 100MG PO TID x 7 days The patient's discharge medication list was reviewed for discrepancies and discrepancies were resolved. The patient was counseled on the following discharge medications and changes in medications for homegoing were reviewed. The Reason for Use, instructions for use, and potential side effects were reviewed for all new medications. The patient's questions regarding all of their medications were answered. The patient was able to verbally demonstrate an understanding of their discharge medications. Patient counseled by assistant inventory managerAdam. Medications at Discharge Home Medications multivitamin 1 tab PO DAILY vitamin 07/16/22 amlodipine 5 mg tablet 5 mg PO DAILY blood pressure 03/24/24 fluoxetine 60 mg tablet 60 mg PO DAILY mental health 03/24/24 carvedilol 12.5 mg tablet 12.5 mg PO BID #60 tabs 03/26/24 cholecalciferol (vitamin D3) 25 mcg (1,000 unit) capsule (Vitamin D3) 25 mcg PO DAILY 08/17/24 cyanocobalamin (vitamin B-12) 50 mcg tablet (Vitamin B-12) 50 mcg PO DAILY 08/17/24 cephalexin 500 mg capsule 500 mg PO Q8H 7 days #21 caps 08/23/24 ondansetron 4 mg disintegrating tablet 4 mg PO Q8H PRN nausea and vomiting #10 tabs 08/23/24 oxycodone 5 mg tablet 5 mg PO Q6H PRN pain 5 days #14 tabs 08/23/24 celecoxib 100 mg capsule (Celebrex) 100 mg PO BID #10 caps 08/25/24 gabapentin 100 mg capsule (Neurontin) 100 mg PO TID 7 days #21 caps 08/25/24
--- NOTE | 2024-08-25 16:02 | WOUNDNOTE ---
Pt c/o pain in the left hand. states she feels the splint moved and is causing pain. removed the BUZZ wraps and dressings. assessed the incisions. all are well approximated with sutures. moderate edema noted. reapplied xeroform gauze to the incisions. covered with dry dressings and 2 familia wrap. applied soft cast padding and reapplied the splint. reapplied BUZZ wraps. pt states that feels so much better. padded the end of the splint well with gauze pads to prevent any skin irritation. pt tolerated well and very appreciative of care. plan is for patient to discharge home today and states she is to return for follow up with plastic surgery on Friday. no further needs voiced at this time.
[2024-08-25 17:29] VITALS: BP 149/93; PULSE 80; RESP 18; TEMP 37.3; O2SAT 94
--- NOTE | 2024-08-25 18:22 | NURSING ---
I pulled 10mg of oxy from the omnicell but pt stated that she only wanted 5 mg. I administered 5mg and then returned the other 5 mg to the [facility]nicell. return witnessed by DAVID Ponce.
== END 2024-08-25 18:30 | disposition home or self-care (01) ==
PROVIDERS: Admitting Provider Surgery Plastic and Reconstructive Surgery; PCP Nurse Practitioner Family; Referring Provider Surgery Plastic and Reconstructive Surgery; Visit Provider Surgery Plastic and Reconstructive Surgery
DX: G89.18 Other acute postprocedural pain (principal); Z87.891 Personal history of nicotine dependence; S86.212A Strain of muscle(s) and tendon(s) of anterior muscle group at lower leg level, left leg, initial encounter; I10 Essential (primary) hypertension; Z79.899 Other long term (current) drug therapy; S56.512D Strain of other extensor muscle, fascia and tendon at forearm level, left arm, subsequent encounter; X58.XXXD Exposure to other specified factors, subsequent encounter; S52.592D Other fractures of lower end of left radius, subsequent encounter for closed fracture with routine healing
CPT/HCPCS: 73130; 94668; 96372; 96374; 96375; 96376; 99221; A4216; G0378; G0379

== ENCOUNTER 2024-10-12 15:30 | Outpatient (RCR) | payer BC, SELFPAY ==
--- NOTE | 2024-08-27 12:04 | HP.OTEVAL_ITS ---
Patient's Visit Information Visit Information Visit Information: ALFONSO FISH is a 54 year old F, referred to Occupational Therapy by Dr. Mitchell Starr MD, with a diagnosis of Left EPL rupture. Date of Evaluation: 08/27/24 Occupational Therapist: Fouzia Weiner, KENDRAR/Rajat, CHT Subjective Subjective: This 54 year old female was seen for OT eval with dx of left EPL rupture. Pt states in May. she suffered a fall and fractured her distal radius. She developed complication of an extensor pollicis longus tendon rupture at her wrist. This prevented her from extending the tip of her thumb. pt states it was limiting her IND with ADLs and IADl's. Pt agreed and underwent tendon transfer left EIP to EPL on 08/23/24. PT arrives to day for custom orthosis and ed. on dx and tendon transfer guidelines. pt works at [employer] and she is ready to return to work as soon as she can. ROM ROM Comments: can not formally test ROM at this time due to newly healing structures Strength Strength Comments: will test at later date Quick DASH-Disab of Arm,Shoulder& Hand Quick DASH Score: 91.0700 Goals Goal:100% adherence to protocol: Yes Comment: tendon transfer guidelines EIP-EPL Goal:Daily scar massage when approriate: Yes Goal:ROM equal to unaffected hand: Yes Goal:Environmental Compliance Inspector/Pinch strength at least 75% of unaffected hand: Yes Comment: not to start until release by Goal:No pain with affected hand use: Yes Goal:Full use of affected hand in daily activities including work: Yes Goal:Decrease scar hypersensitivity: Yes Other Goal: Orthosis use: pt will demo IND doffing and donning of orthosis by end of 1st session. pt will demo understanding or skin care and precautions by end of 1st session. Rehabilitation General Assessment: Pt arrives 4 days s/p from a left EIP transfer to Left EPL. Due to newly healing sturctures pt is in need of custom orthosis to provide support and protection to left tendon transfer. Pt demo need for skilled OT services 1-2x week for 12 weeks to return pt to a PLOF. Today therapist ed. pt on surgical procedure, precautions and gave handout on EIP-EPL tendon transfer guidelines Pt demo understanding and agreed to POC. Rehabilitation Potential: Good Anticipated Interventions Anticipated Interventions: A/AAROM/PROM, Strengthening, Edema Control, Scar Care, Triggerpoint Release, Orthoses, Joint Protection/Energy Conservation, Education re assistive Equipment, Education re Diagnosis and Home Program Visit Plan Frequency: 1-2x /Week Duration: 3 Months TEXT: Thank you for the opportunity to evaluate your patient. For Medicare and Medicare HMO plans, please review the plan of care and approve it. It will need to be FAXED BACK to us at [phone] for Medicare purposes. Please let me know if there are questions or concerns regarding this plan of care. Physician Signature: Date:
--- NOTE | 2024-09-07 14:08 | HP.OTEVAL ---
Patient's Visit Information Visit Information Visit Information: ALFONSO FISH is a 54 year old F, referred to Occupational Therapy by Dr. Mitchell Starr MD, with a diagnosis of Left EPL rupture. Date of Evaluation: 08/27/24 Occupational Therapist: Fouzia Weiner, KENDRAR/Rajat, CHT Subjective Subjective: This 54 year old female was seen for OT eval with dx of left EPL rupture. Pt states in May. she suffered a fall and fractured her distal radius. She developed complication of an extensor pollicis longus tendon rupture at her wrist. This prevented her from extending the tip of her thumb. pt states it was limiting her IND with ADLs and IADl's. Pt agreed and underwent tendon transfer left EIP to EPL on 08/23/24. PT arrives to day for custom orthosis and ed. on dx and tendon transfer guidelines. pt works at [employer] and she is ready to return to work as soon as she can. ROM ROM Comments: can not formally test ROM at this time due to newly healing structures Strength Strength Comments: will test at later date Quick DASH-Disab of Arm,Shoulder& Hand Quick DASH Score: 91.0700 Goals Goal:100% adherence to protocol: Yes Comment: tendon transfer guidelines EIP-EPL Goal:Daily scar massage when approriate: Yes Goal:ROM equal to unaffected hand: Yes Goal:Spring Coiling Machine Setter/Pinch strength at least 75% of unaffected hand: Yes Comment: not to start until release by Goal:No pain with affected hand use: Yes Goal:Full use of affected hand in daily activities including work: Yes Goal:Decrease scar hypersensitivity: Yes Other Goal: Orthosis use: pt will demo IND doffing and donning of orthosis by end of 1st session. pt will demo understanding or skin care and precautions by end of 1st session. Rehabilitation General Assessment: Pt arrives 4 days s/p from a left EIP transfer to Left EPL. Due to newly healing sturctures pt is in need of custom orthosis to provide support and protection to left tendon transfer. Pt demo need for skilled OT services 1-2x week for 12 weeks to return pt to a PLOF. Today therapist ed. pt on surgical procedure, precautions and gave handout on EIP-EPL tendon transfer guidelines Pt demo understanding and agreed to POC. Rehabilitation Potential: Good Anticipated Interventions Anticipated Interventions: A/AAROM/PROM, Strengthening, Edema Control, Scar Care, Triggerpoint Release, Orthoses, Joint Protection/Energy Conservation, Education re assistive Equipment, Education re Diagnosis and Home Program Visit Plan Frequency: 1-2x /Week Duration: 3 Months TEXT: Thank you for the opportunity to evaluate your patient. For Medicare and Medicare HMO plans, please review the plan of care and approve it. It will need to be FAXED BACK to us at [phone] for Medicare purposes. Please let me know if there are questions or concerns regarding this plan of care. Physician Signature: Date:
--- NOTE | 2024-12-22 13:46 | HP.OTDCSUM ---
Discharge Summary D/C Summary: It has been my pleasure to treat ALFONSO FISH under orders from Dr. Mitchell Starr MD, for the diagnosis of Left EPL rupture for a total of 6 visit(s). Please see the following information for a summary of their discharge status. Objective Objective/Function: left supervisor bridges and buildings 25# left lateral pinch 8# left tripod pinch 4# left wrist 55/40 left IP +15* left IP flexion 45 opposition to LF DPC pt did great with gains in her ROM and strength. Goals Patient Goals: Use Hand/Wrist/Arm Normally Again Goal:100% adherence to protocol: Yes Goal:Daily scar massage when approriate: Yes Goal:ROM equal to unaffected hand: Yes Goal Progress: Goal Met Goal:Media Aid/Pinch strength at least 75% of unaffected hand: Yes Goal Progress: Progressing Goal:No pain with affected hand use: Yes Goal Progress: Goal Met Goal:Full use of affected hand in daily activities including work: Yes Goal Progress: Goal Met Goal:Decrease scar hypersensitivity: Yes Goal Progress: Goal Met Other Goal: Orthosis use: pt will demo IND doffing and donning of orthosis by end of 1st session. pt will demo understanding or skin care and precautions by end of 1st session. Plan Plan: flexion of thumb IP wrist ROM D/C Information Discharge Comments: pt to continue with HEP as she was hopeful to return to work. d/c sentence: If there are questions or concerns regarding this patient's occupational therapy, please fell free to call me at [phone]. Thank you for the referral of this patient. Sincerely, Fouzia Weiner, OTR/L, CHT
== END 2024-10-12 19:00 | disposition home or self-care (01) ==
LOC: OT 15:30
PROVIDERS: PCP Nurse Practitioner Family; Referring Provider Orthopaedic Surgery Sports Medicine; Visit Provider Orthopaedic Surgery Sports Medicine
DX: S52.502D Unspecified fracture of the lower end of left radius, subsequent encounter for closed fracture with routine healing (principal)
CPT/HCPCS: 97110; 97140; 97166; 97530; 97760